=== PATIENT | male | born 1970 | race American Indian/Alaskan Native ===

== ENCOUNTER 2017-11-15 13:50 | Emergency (ER) | payer OTHER ==
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
[2017-11-15] MEDS ORDERED: NORVASC PO ONE (16:17)
[2017-11-15] MEDS ORDERED: TYLENOL PO ONE (16:28)
[2017-11-15 17:22] VITALS: BP 165/118
== END 2017-11-15 17:43 | disposition home or self-care (01) ==
LOC: ED 13:50
DX: M25.511 Pain in right shoulder (principal); M25.512 Pain in left shoulder; I10 Essential (primary) hypertension; F17.200 Nicotine dependence, unspecified, uncomplicated; V89.2XXA Person injured in unspecified motor-vehicle accident, traffic, initial encounter; Y93.89 Activity, other specified; Y92.89 Other specified places as the place of occurrence of the external cause; Y99.8 Other external cause status
CPT/HCPCS: 99282

== ENCOUNTER 2021-06-21 07:29 | Inpatient (IN) | payer OTHER, SELFPAY ==
[2021-06-21] MEDS ORDERED: cloNIDine 0.2 MG TAB PO ONE (08:10)
[2021-06-21 08:40] LABS: Hematocrit 43.1 % (35.5-45.6); Hemoglobin 15.2 gm/dl (11.8-15.2); Mean Corpuscular HGB Conc 35 % (32-34); Mean Corpuscular Volume 93 fl (84-94); Platelet Count 244 K/mm3 (140-440); Red Blood Count 4.64 M/mm3 (3.65-5.03); Red Cell Distribution Width 13.5 % (13.2-15.2)
[2021-06-21] MEDS ORDERED: METOCLOPRAMIDE 10 MG/2 ML INJ IV ONE (08:45)
[2021-06-21] MEDS ORDERED: diphenhydrAMINE 50 MG/ML VIAL IV ONE (08:45)
--- NOTE | 2021-06-21 08:46 | Emergency Department Report ---
<SNEHAL COX - Last Filed: 06/21/21 12:52> ED Headache HPI - General Chief Complaint: Headache Stated Complaint: BLOOD PRESSURE Time Seen by Provider: 06/21/21 08:44 Source: patient Exam Limitations: no limitations - History of Present Illness Initial Comments: 51 year old male with past medical history of hypertension and tobacco use presents to the ER today with complaints of headache. Patient states that he started with a gradual bitemporal headache yesterday. He States that has been constant since yesterday with associated dizzy and feeling off balance like he is about to pass out and nausea. Patient states that he assumed that the he adache was likely related to his high blood pressure because he does not typically get headaches but he did not check his blood pressure yesterday. He states that the last time he has taken anything for his blood pressure was about 3 years ago. He states that he had lost weight and so his primary care doctor took him off the blood pressure medications. Patient admits that he has not been compliant with follow-ups with his primary care doctor and has not been checking his blood pressures at home since he has been off of the blood pressure medication. He denies any associated vision changes, speech changes, focal weakness, numbness, tingling, syncope, chest pain, shortness of breath, abdominal pain or any additional symptoms. Other than hypertension he denies any other significant past medical history. Timing/Duration: 24 hours, constant Quality: moderate, severe Head Injury Location: temporal Allergies/Adverse Reactions: Allergies No Known Allergies Allergy (Verified 06/21/21 07:33) Home Medications: Ambulatory Orders hydrALAZINE [Apresoline TAB] 25 mg PO Q8HR #90 tablet 08/31/15 Acetaminophen [Acetaminophen TAB] 500 mg PO Q6HR PRN #30 tablet 11/15/17 Cyclobenzaprine [Flexeril] 10 mg PO TID PRN #15 tablet 11/15/17 amLODIPine 10 mg PO DAILY #30 tablet 11/15/17 ED Review of Systems Comment: All other systems reviewed and negative Constitutional: denies: chills, fever Eyes: denies: eye pain, eye discharge, vision change ENT: denies: ear pain, throat pain, dental pain, hearing loss, epistaxis, congestion Respiratory: denies: cough, shortness of breath, SOB with exertion, SOB at rest, wheezing Cardiovascular: denies: chest pain, palpitations, dyspnea on exertion, edema, syncope, paroxysmal nocturnal dyspnea Gastrointestinal: nausea. denies: abdominal pain, vomiting, diarrhea, constipation, hematemesis, melena, hematochezia Genitourinary: denies: urgency, dysuria, frequency, hematuria, discharge, testicular pain, testicular mass Musculoskeletal: denies: back pain, joint swelling, arthralgia, myalgia Skin: denies: rash, lesions, change in color, change in hair/nails, pruritus Neurological: headache, other (dizzy, off balance ). denies: weakness, numbness, paresthesias, confusion, abnormal gait Psychiatric: denies: anxiety, depression, auditory hallucinations, visual hallucinations, homicidal thoughts, suicidal thoughts Hematological/Lymphatic: denies: easy bleeding, easy bruising, swollen glands ED Past Medical Hx - Past Medical History Hx Hypertension: Yes Hx Congestive Heart Failure: No Hx Diabetes: No Hx Asthma: No Hx COPD: No Hx HIV: No - Surgical History Additional Surgical History: hand surgery, ankle surgery - Social History Smoking Status: Never Smoker Substance Use Type: None - Medications Home Medications: Home Medications Medication Instructions Recorded Confirmed Last Taken Type hydrALAZINE [Apresoline TAB] 25 mg PO Q8HR #90 tablet 08/31/15 Unknown Rx Acetaminophen [Acetaminophen TAB] 500 mg PO Q6HR PRN #30 tablet 11/15/17 Unknown Rx Cyclobenzaprine [Flexeril] 10 mg PO TID PRN #15 tablet 11/15/17 Unknown Rx amLODIPine 10 mg PO DAILY #30 tablet 11/15/17 Unknown Rx ED Physical Exam - General Limitations: No Limitations General appearance: alert, in distress (mod pain distress), other (pt holding his head and appears to be in pain from his Headache ) - Head Head exam: Present: atraumatic, normocephalic, normal inspection - Eye Eye exam: Present: normal appearance, PERRL, EOMI Pupils: Present: normal accommodation - ENT ENT exam: Present: normal exam, mucous membranes moist - Neck Neck exam: Present: normal inspection, full ROM. Absent: meningismus - Respiratory Respiratory exam: Present: normal lung sounds bilaterally. Absent: respiratory distress, wheezes, rales, rhonchi - Cardiovascular Cardiovascular Exam: Present: regular rate, normal rhythm, normal heart sounds - Neurological Exam Neurological exam: Present: alert, oriented X3, CN II-XII intact - Expanded Neurological Exam Expanded Neurological exam: Present: ataxia Patient oriented to: Present: person, place, time Speech: Present: fluid speech Cranial nerves: EOM's Intact: Normal, Gag Reflex: Normal, Facial Sensation: Normal Ataxia: Present: yes Sensory exam: Upper Extremity Light Touch: Normal, Upper Extremity Temperature: Normal, Lower Extremity Light Touch: Normal, Lower Extremity Temperature: Normal Motor strength exam: RUE: 5, LUE: 5, RLE: 5, LLE: 5 Best Eye Response (Erlin): (4) open spontaneously Best Motor Response (Narvon): (6) obeys commands Best Verbal Response (Erlin): (5) oriented Erlin Total: 15 ED Medical Decision Making - Lab Data Result diagrams: 06/21/21 08:22 06/21/21 08:22 - Radiology Data Radiology results: report reviewed Patient: NOEL LEDBETTER MR#: [id number] [birth year] : 1970 Acct:[id number] Age/Sex: 51 / M ADM Date: 06/21/21 Loc: ED Attending Dr: Ordering Physician: SNEHAL COX Date of Service: 06/21/21 Procedure(s): CT head/brain wo con Accession Number(s): [id number] cc: SNEHAL COX CT HEAD WITHOUT CONTRAST INDICATION / CLINICAL INFORMATION: severe headache. TECHNIQUE: All CT scans at this location are performed using CT dose reduction for ALARA by means of automated exposure control. COMPARISON: Head CT 08/28/2015 and MRI brain 08/29/2015 FINDINGS: HEMORRHAGE: No evidence of intracranial hemorrhage or extra-axial fluid collection. EXTRA-AXIAL SPACES: Cortical sulci, sylvian fissures and basilar cisterns have an unremarkable appearance. VENTRICULAR SYSTEM: The third and lateral ventricles are of normal size and configuration. CEREBRAL PARENCHYMA: Bilaterally symmetrical physiological calcification is seen in the basal ganglia regions. Periventricular and deep white matter lucencies noted compatible with microvascular ischemic change in excess of that expected for the patient's age of 51 years. Are there risk factors of hypertension, diabetes, cigarette smoking or renal disease These findings have progressed since prior study. MIDLINE SHIFT OR HERNIATION: There is no mass effect. CEREBELLUM / BRAINSTEM: Brainstem and cerebellum have an unremarkable appearance. MIDLINE STRUCTURES:No abnormalities of the pituitary gland or pineal region are identified. INTRACRANIAL VESSELS: Calcified atherosclerotic plaque is seen along the course of the cavernous segments of both internal carotid arteries. ORBITS: visualized portions of the orbits have an unremarkable appearance. SOFT TISSUES of HEAD: No significant abnormality. CALVARIUM: Evaluation of bone windows reveals no abnormalities. PARANASAL SINUSES / MASTOID AIR CELLS: Visualized portions of the paranasal sinuses are free from inflammatory mucosal disease. Mastoid air cells are normally pneumatized. ADDITIONAL FINDINGS: None. IMPRESSION: 1. No acute intracranial abnormality. 2. Interval development of white matter lucency compatible with microvascular ischemic change. Please refer to the above discussion. Signer Name: Malik Sanchez MD Signed: 06/21/2021 8:47 AM Workstation Name: [id number] Transcribed By: Patient: NOEL LEDBETTER MR#: [id number] [birth year] : 1970 Acct:[id number] Age/Sex: 51 / M ADM Date: 06/21/21 Loc: ED Attending Dr: Ordering Physician: SNEHAL COX Date of Service: 06/21/21 Procedure(s): XR chest 1V ap Accession Number(s): [id number] cc: SNEHAL COX Fluoro Time In Minutes: CHEST 1 VIEW 06/21/2021 11:12 AM INDICATION / CLINICAL INFORMATION: fever. COMPARISON: None available. FINDINGS: SUPPORT DEVICES: None. HEART / MEDIASTINUM: The cardiac silhouette is mildly enlarged without other significant abnormalities. LUNGS / PLEURA: No significant pulmonary abnormality. No significant pleural effusion. No pneumothorax. ADDITIONAL FINDINGS: No significant additional findings. IMPRESSION: Mild cardiomegaly without other acute findings. Signer Name: Rodolfo Saini MD Signed: 06/21/2021 11:21 AM Workstation Name: [id number] Transcribed By: [place] Dictated By: Rodolfo Saini MD Electronically Authenticated By: Rodolfo Saini MD Signed Date/Time: 06/21/21 1121 DD/ 1120 TD/TT: - Medical Decision Making 1119: Patient current vital signs on the youth nutritional monitor shows that he has a blood pressure of 175/120 despite meds, heart rate in 83 but his oxygen was noted to fluctuate between 92 to 95% on room air at rest. Patient temperature now is 102. Patient states that he still dizzy but his headache is improving. Questioned patient further and she now has this fever, and he did admit that he had a subjective fever last night and he states that he only now started coughing since he has been in the ER but otherwise denies any runny nose, nasal congestion, shortness of breath, wheezing or chest pain, or neck pain. He denies any known Covid COVID-19 contacts and he had has not gotten the vaccine. cxr and tylenol ordered, EKG pending So far labs including trop unremarkable. CT Head shows No acute intracranial abnormality. Interval development of white matter lucency compatible with microvascular ischemic change. Chest x-ray shows mild cardiomegaly but otherwise unremarkable. EKG reviewed and documented by Dr De Jesus but no STEMI or significant dysrhythmias 1209: Patient was evaluate together with Dr De Jesus and myself. Patient states that his headache is now 8 out of 10 and he still feels dizzy. Patient was ambulated by myself without a cane, he does still have a mild ataxic gait but otherwise his neurological exam is unremarkable. He was in no respiratory distress. See Dr Pickett not for details. Patient will be admitted to hospital for furthe evaluation and tx for uncontrolled HTN, unsteady gait and MARTINEZ and fever. ED Disposition Clinical Impression: Accelerated hypertension, Unsteady gait, Fever, Headache Disposition: ADMITTED INPATIENT Condition: Stable <DEEPIKA DE JESUS - Last Filed: 06/21/21 14:18> ED Headache HPI - General Source: old records ED Review of Systems ROS: Stated complaint: BLOOD PRESSURE Other details as noted in HPI ED Course Vital Signs 06/21/21 06/21/21 06/21/21 07:36 08:26 10:27 Temperature 99.6 F Pulse Rate 97 H 97 H Respiratory 22 Rate Blood Pressure 213/138 213/138 O2 Sat by Pulse 93 94 Oximetry 06/21/21 06/21/21 06/21/21 10:30 10:46 11:08 Temperature Pulse Rate Respiratory Rate Blood Pressure 200/115 200/115 175/120 O2 Sat by Pulse 93 90 87 Oximetry 06/21/21 06/21/21 06/21/21 11:16 11:30 11:41 Temperature 102.9 F H Pulse Rate Respiratory Rate Blood Pressure 175/120 184/124 O2 Sat by Pulse 95 96 Oximetry 06/21/21 06/21/21 06/21/21 11:46 12:00 13:18 Temperature Pulse Rate Respiratory Rate Blood Pressure 184/124 184/124 175/120 O2 Sat by Pulse 96 94 93 Oximetry 06/21/21 06/21/21 06/21/21 13:30 13:46 14:00 Temperature Pulse Rate Respiratory Rate Blood Pressure 175/120 175/120 180/108 O2 Sat by Pulse 87 90 87 Oximetry - Reevaluation(s) Reevaluation #1: 06/21/21 14:17 Improvement in diastolic pressure after labetalol 10 mg IV. Addition of labetalol ordered ED Medical Decision Making - Lab Data Result diagrams: 06/21/21 08:22 06/21/21 08:22 Lab Results 06/21/21 06/21/21 06/21/21 Range/Units 08:22 08:22 08:22 WBC 6.6 (4.5-11.0) K/mm3 RBC 4.64 (3.65-5.03) M/mm3 Hgb 15.2 (11.8-15.2) gm/dl Hct 43.1 (35.5-45.6) % MCV 93 (84-94) fl MCH 33 H (28-32) pg MCHC 35 H (32-34) % RDW 13.5 (13.2-15.2) % Plt Count 244 (140-440) K/mm3 [place] % (Auto) Clerk Of Scales Add Manual Diff Complete Total Counted 100 Seg Neuts % (Manual) 69.0 (40.0-70.0) % Lymphocytes % (Manual) 11.0 L (13.4-35.0) % Monocytes % (Manual) 18.0 H (0.0-7.3) % Basophils % (Manual) 2.0 H (0.0-1.8) % Nucleated RBC % Not Reportable Seg Neutrophils # Man 4.6 (1.8-7.7) K/mm3 Band Neutrophils # 0.0 K/mm3 Lymphocytes # (Manual) 0.7 L (1.2-5.4) K/mm3 Abs React Lymphs (Man) 0.0 K/mm3 Monocytes # (Manual) 1.2 H (0.0-0.8) K/mm3 Eosinophils # (Manual) 0.0 (0.0-0.4) K/mm3 Basophils # (Manual) 0.1 (0.0-0.1) K/mm3 Metamyelocytes # 0.0 K/mm3 Myelocytes # 0.0 K/mm3 Promyelocytes # 0.0 K/mm3 Blast Cells # 0.0 K/mm3 WBC Morphology Not Reportable Hypersegmented Neuts Not Reportable Hyposegmented Neuts Not Reportable Hypogranular Neuts Not Reportable Smudge Cells Not Reportable Toxic Granulation Not Reportable Toxic Vacuolation Not Reportable Dohle Bodies Not Reportable Pelger-Huet Anomaly Not Reportable Mary Rods Not Reportable Platelet Estimate Consistent w auto Clumped Platelets Not Reportable Plt Clumps, EDTA Not Reportable Large Platelets Few Giant Platelets Not Reportable Platelet Satelliting Not Reportable Plt Morphology Comment Not Reportable RBC Morphology Normal Dimorphic RBCs Not Reportable Polychromasia Not Reportable Hypochromasia Not Reportable Poikilocytosis Not Reportable Anisocytosis Not Reportable Microcytosis Not Reportable Macrocytosis Not Reportable Spherocytes Not Reportable Pappenheimer Bodies Not Reportable Sickle Cells Not Reportable Target Cells Not Reportable Tear Drop Cells Not Reportable Ovalocytes Not Reportable Helmet Cells Not Reportable Andres-Tovey Bodies Not Reportable Amo Rings Not Reportable Jillian Cells Not Reportable Bite Cells Not Reportable Crenated Cell Not Reportable Elliptocytes Not Reportable Acanthocytes (Spur) Not Reportable Rouleaux Not Reportable Hemoglobin C Crystals Not Reportable Schistocytes Not Reportable Malaria parasites Not Reportable ESR (0-20) mm/Hr Anup Bodies Not Reportable Hem Pathologist Commnt No Sodium 134 L (137-145) mmol/L Potassium 4.0 (3.6-5.0) mmol/L Chloride 97.5 L (98-107) mmol/L Carbon Dioxide 26 (22-30) mmol/L Anion Gap 15 mmol/L BUN 15 (9-20) mg/dL Creatinine 1.3 (0.8-1.3) mg/dL Estimated GFR > 60 ml/min BUN/Creatinine Ratio 12 % Glucose 87 (75-100) mg/dL Calcium 9.6 (8.4-10.2) mg/dL Total Bilirubin 0.30 (0.1-1.2) mg/dL AST 22 (5-40) units/L ALT 14 (7-56) units/L Alkaline Phosphatase 78 (35-129) units/L Troponin T < 0.010 (0.00-0.029) ng/mL Total Protein 7.7 (6.3-8.2) g/dL Albumin 4.6 (3.9-5) g/dL Albumin/Globulin Ratio 1.5 % // Range/Units 08:22 WBC (4.5-11.0) K/mm3 RBC (3.65-5.03) M/mm3 Hgb (11.8-15.2) gm/dl Hct (35.5-45.6) % MCV (84-94) fl MCH (28-32) pg MCHC (32-34) % RDW (13.2-15.2) % Plt Count (140-440) K/mm3 [place] % (Auto) Add Manual Diff Total Counted Seg Neuts % (Manual) (40.0-70.0) % Lymphocytes % (Manual) (13.4-35.0) % Monocytes % (Manual) (0.0-7.3) % Basophils % (Manual) (0.0-1.8) % Nucleated RBC % Seg Neutrophils # Man (1.8-7.7) K/mm3 Band Neutrophils # K/mm3 Lymphocytes # (Manual) (1.2-5.4) K/mm3 Abs React Lymphs (Man) K/mm3 Monocytes # (Manual) (0.0-0.8) K/mm3 Eosinophils # (Manual) (0.0-0.4) K/mm3 Basophils # (Manual) (0.0-0.1) K/mm3 Metamyelocytes # K/mm3 Myelocytes # K/mm3 Promyelocytes # K/mm3 Blast Cells # K/mm3 WBC Morphology Hypersegmented Neuts Hyposegmented Neuts Hypogranular Neuts Smudge Cells Toxic Granulation Toxic Vacuolation Dohle Bodies Pelger-Huet Anomaly Mary Rods Platelet Estimate Clumped Platelets Plt Clumps, EDTA Large Platelets Giant Platelets Platelet Satelliting Plt Morphology Comment RBC Morphology Dimorphic RBCs Polychromasia Hypochromasia Poikilocytosis Anisocytosis Microcytosis Macrocytosis Spherocytes Pappenheimer Bodies Sickle Cells Target Cells Tear Drop Cells Ovalocytes Helmet Cells Andres-Tovey Bodies Amo Rings Jillian Cells Bite Cells Crenated Cell Elliptocytes Acanthocytes (Spur) Rouleaux Hemoglobin C Crystals Schistocytes Malaria parasites ESR 6 (0-20) mm/Hr Anup Bodies Hem Pathologist Commnt Sodium (137-145) mmol/L Potassium (3.6-5.0) mmol/L Chloride (98-107) mmol/L Carbon Dioxide (22-30) mmol/L Anion Gap mmol/L BUN (9-20) mg/dL Creatinine (0.8-1.3) mg/dL Estimated GFR ml/min BUN/Creatinine Ratio % Glucose (75-100) mg/dL Calcium (8.4-10.2) mg/dL Total Bilirubin (0.1-1.2) mg/dL AST (5-40) units/L ALT (7-56) units/L Alkaline Phosphatase (35-129) units/L Troponin T (0.00-0.029) ng/mL Total Protein (6.3-8.2) g/dL Albumin (3.9-5) g/dL Albumin/Globulin Ratio % - EKG Data -: EKG Interpreted by Me EKG shows normal: sinus rhythm, ST-T waves (lvh, repol ) Rate: normal - Medical Decision Making I examined patient at the bedside with Snehal. Patient complains of persistent but improving bitemporal headache with midlevel treatment prior to my evaluation. His NIH stroke scale is 0 however, patient is noticeably unsteady while walking. Blood pressure remains elevated despite clonidine 0.2 mg. Patient developed a fever and complains of a mild cough but denies urinary symptoms. Chest x-ray without infiltrate. No nuchal rigidity on examination. Abdomen nontender. Previous medical record reviewed and patient had a presentation of hypertension, headache, ataxia, and blurred vision in 2015 and had a negative stroke work-up at that time. At this time concerned about uncontrolled hypertension in addition to headache and unsteady gait and concern for accelerated hypertension. Case discussed with Dr. Larsen who recommends telemetry medicine. IV labetalol ordered and admission orders placed. Symptoms could also be part of a viral syndrome/Covid. Covid test ordered. Critical care attestation.: If time is entered above; I have spent that time in minutes in the direct care of this critically ill patient, excluding procedure time. ED Disposition Is pt being admited?: Yes Time of Disposition: 12:18 (Dr. Larsen/hospitalist) - Assessment Assessment Interval: Baseline - Level of Consciousness 1a. Level of Consciousness: alert/keenly responsive - LOC Questions 1b. LOC Questions: answers both correctly - LOC Command 1c. LOC Commands: performs tasks correctly - Best Gaze 2. Best Gaze: normal - Visual 3. Visual: no visual loss - Facial Palsy 4. Facial Palsy: normal symmetrical movement - Motor Arm 5a. Motor Arm Left: no drift 5b. Motor Arm Right: no drift - Motor Leg 6a. Motor Leg Left: no drift 6b. Motor Leg Right: no drift - Limb Ataxia 7. Limb Ataxia: absent - Sensory 8. Sensory: normal - Best Language 9. Best Language: no aphasia - Dysarthria 10. Dysarthria: normal - Extinction and Inattention 11. Extinction/Inattention: no abnormality - Scoring Total Score: 0 Stroke Severity: No Stroke Symptoms
--- NOTE | 2021-06-21 08:51 | Cat Scan Report ---
CT HEAD WITHOUT CONTRAST INDICATION / CLINICAL INFORMATION: severe headache. TECHNIQUE: All CT scans at this location are performed using CT dose reduction for ALARA by means of automated e xposure control. COMPARISON: Head CT 08/28/2015 and MRI brain 08/29/2015 FINDINGS: HEMORRHAGE: No evidence of intracranial hemorrhage or extra-axial fluid collection. EXTRA-AXIAL SPACES: Cortical sulci, sylvian fissures and basilar cisterns have an unremarkable appear ance. VENTRICULAR SYSTEM: The third and lateral ventricles are of normal size and configuration. CEREBRAL PARENCHYMA: Bilaterally symmetrical physiological calcification is seen in the basal ganglia regions. Periventricular and deep white matter lucencies noted compatible with microvascular ischemi c change in excess of that expected for the patient's age of 51 years. Are there risk factors of hype rtension, diabetes, cigarette smoking or renal disease These findings have progressed since prior eliu dy. MIDLINE SHIFT OR HERNIATION: There is no mass effect. CEREBELLUM / BRAINSTEM: Brainstem and cerebellum have an unremarkable appearance. MIDLINE STRUCTURES:No abnormalities of the pituitary gland or pineal region are identified. INTRACRANIAL VESSELS: Calcified atherosclerotic plaque is seen along the course of the cavernous segm ents of both internal carotid arteries. ORBITS: visualized portions of the orbits have an unremarkable appearance. SOFT TISSUES of HEAD: No significant abnormality. CALVARIUM: Evaluation of bone windows reveals no abnormalities. PARANASAL SINUSES / MASTOID AIR CELLS: Visualized portions of the paranasal sinuses are free from inf lammatory mucosal disease. Mastoid air cells are normally pneumatized. ADDITIONAL FINDINGS: None. IMPRESSION: 1. No acute intracranial abnormality. 2. Interval development of white matter lucency compatible with microvascular ischemic change. Please refer to the above discussion. Signer Name: Malik Sanchez MD Signed: 06/21/2021 8:47 AM Workstation Name: [id number]
[2021-06-21 09:00] LABS: Alanine Aminotransferase 14 units/L (7-56); Albumin 4.6 g/dL (3.9-5); BUN/Creatinine Ratio 12; Blood Urea Nitrogen 15 mg/dL (9-20); Calcium 9.6 mg/dL (8.4-10.2); Hemolysis Index 7
[2021-06-21 10:04] LABS: Total Cells Counted 100
[2021-06-21 10:06] LABS: Large Platelets Few; Platelet Estimate Consistent w Auto; RBC Morphology Normal
[2021-06-21] MEDS ORDERED: ACETAMINOPHEN 325 MG TAB PO ONE (11:21)
--- NOTE | 2021-06-21 11:25 | XRay Report ---
CHEST 1 VIEW 06/21/2021 11:12 AM INDICATION / CLINICAL INFORMATION: fever. COMPARISON: None available. FINDINGS: SUPPORT DEVICES: None. HEART / MEDIASTINUM: The cardiac silhouette is mildly enlarged without other significant abnormalitie s. LUNGS / PLEURA: No significant pulmonary abnormality. No significant pleural effusion. No pneumothora x. ADDITIONAL FINDINGS: No significant additional findings. IMPRESSION: Mild cardiomegaly without other acute findings. Signer Name: Rodolfo Saini MD Signed: 06/21/2021 11:21 AM Workstation Name: [id number]
[2021-06-21 15:39] LABS: Bilirubin,Urine NEG (Negative); Blood,Urine SM (Negative); Color,Urine Yellow (Yellow); Mucus,Urine FEW /HPF
[2021-06-21] MEDS ORDERED: ONDANSETRON 4 MG/2 ML INJ IV PRN (21:30)
[2021-06-21] MEDS ORDERED: METOCLOPRAMIDE 10 MG/2 ML INJ IV PRN (21:30)
[2021-06-21] MEDS ORDERED: HYDROmorphone 1 MG/1 ML INJ IV PRN (21:30)
[2021-06-21] MEDS ORDERED: oxyCODONE /ACETAMINOPHEN 5-325MG TAB PO PRN (21:30)
[2021-06-21] MEDS ORDERED: ACETAMINOPHEN 325 MG TAB PO PRN (21:30)
[2021-06-21] MEDS ORDERED: hydrALAZINE 20 MG/1 ML INJ IV PRN (21:33)
[2021-06-21] MEDS: amLODIPine 10 MG TAB PO SCH (23:23)
[2021-06-21] MEDS: HEPARIN 5,000 UNIT/1 ML VIAL SUB-Q SCH (23:24)
[2021-06-21] MEDS: VALSARTAN 160MG TAB PO SCH (23:24)
[2021-06-21] MEDS: carvediloL 12.5 MG TAB PO SCH (23:24)
[2021-06-21] MEDS: FAMOTIDINE 20 MG TAB PO SCH (23:24)
[2021-06-22 06:31] LABS: Hematocrit 41.4 % (35.5-45.6); Hemoglobin 14.7 gm/dl (11.8-15.2); Mean Corpuscular HGB Conc 36 % (32-34); Mean Corpuscular Volume 91 fl (84-94); Platelet Count 186 K/mm3 (140-440); Red Blood Count 4.56 M/mm3 (3.65-5.03); Red Cell Distribution Width 13.7 % (13.2-15.2)
[2021-06-22 06:39] LABS: Alanine Aminotransferase 16 units/L (7-56); Albumin 4.2 g/dL (3.9-5); BUN/Creatinine Ratio 14; Blood Urea Nitrogen 18 mg/dL (9-20); Calcium 8.9 mg/dL (8.4-10.2); Hemolysis Index 33
--- NOTE | 2021-06-22 07:26 | History and Physical Report ---
History of Present Illness Date of examination: 06/21/21 Date of admission: 06/21/21 12:18 Chief complaint: Headache for 2 days History of present illness: 51-year-old -[place] Citizen male with history of hypertension and smoking, noncompliant with medications comes in for headache since yesterday. Gradual and dull and bilateral. Constant since this today and also associated with dizziness and feeling off balance. Patient feels as he is about to pass out. In the emergency room his blood pressure was 220/10/27/2019. Patient was taking blood pressure medication to 3 years ago and then stop. He states that he lost weight and the primary care physician to do more of his blood pressure medications. Patient has not been following with his primary care physician. No chest pain. No shortness of breath. No fever or chills. - Past Medical History --Hypertension: Yes - Surgical History Additional Surgical History: hand surgery, ankle surgery - Social History Smoking Status: Never Smoker Substance Use Type: None -Family history --Htn - Medications Home Medications: Home Medications Medication Instructions Recorded Confirmed Last Taken Type hydrALAZINE [Apresoline TAB] 25 mg PO Q8HR #90 tablet 08/31/15 Unknown Rx Acetaminophen [Acetaminophen TAB] 500 mg PO Q6HR PRN #30 tablet 11/15/17 Unknown Rx Cyclobenzaprine [Flexeril] 10 mg PO TID PRN #15 tablet 11/15/17 Unknown Rx amLODIPine 10 mg PO DAILY #30 tablet 11/15/17 Unknown Rx --Review of Systems Comment: All other systems reviewed and negative Constitutional: denies: chills, fever Eyes: denies: eye pain, eye discharge, vision change ENT: denies: ear pain, throat pain, dental pain, hearing loss, epistaxis, congestion Respiratory: denies: cough, shortness of breath, SOB with exertion, SOB at rest, wheezing Cardiovascular: denies: chest pain, palpitations, dyspnea on exertion, edema, syncope, paroxysmal nocturnal dyspnea Gastrointestinal: nausea. denies: abdominal pain, vomiting, diarrhea, constipation, hematemesis, melena, hematochezia Genitourinary: denies: urgency, dysuria, frequency, hematuria, discharge, testicular pain, testicular mass Musculoskeletal: denies: back pain, joint swelling, arthralgia, myalgia Skin: denies: rash, lesions, change in color, change in hair/nails, pruritus Neurological: headache, other (dizzy, off balance ). denies: weakness, numbness, paresthesias, confusion, abnormal gait Psychiatric: denies: anxiety, depression, auditory hallucinations, visual hallucinations, homicidal thoughts, suicidal thoughts Hematological/Lymphatic: denies: easy bleeding, easy bruising, swollen glands Medications and Allergies Allergies Allergy/AdvReac Type Severity Reaction Status Date / Time No Known Allergies Allergy Verified 06/21/21 07:33 Home Medications Medication Instructions Recorded Confirmed Last Taken Type hydrALAZINE [Apresoline TAB] 25 mg PO Q8HR #90 tablet 08/31/15 Unknown Rx Acetaminophen [Acetaminophen TAB] 500 mg PO Q6HR PRN #30 tablet 11/15/17 Unknown Rx Cyclobenzaprine [Flexeril] 10 mg PO TID PRN #15 tablet 11/15/17 Unknown Rx amLODIPine 10 mg PO DAILY #30 tablet 11/15/17 Unknown Rx Active Meds: Active Medications Acetaminophen (Acetaminophen 325 Mg Tab) 650 mg PO Q4H PRN PRN Reason: Pain MILD(1-3)/Fever >100.5/MARTINEZ Last Admin: 06/21/21 22:00 Dose: 650 mg Documented by: Amlodipine Besylate (Amlodipine 10 Mg Tab) 10 mg PO QDAY [facility] Last Admin: 06/21/21 23:23 Dose: 10 mg Documented by: Carvedilol (Carvedilol 12.5 Mg Tab) 12.5 mg PO BID [facility] Last Admin: 06/21/21 23:24 Dose: 12.5 mg Documented by: Famotidine (Famotidine 20 Mg Tab) 20 mg PO BID [facility] Last Admin: 06/21/21 23:24 Dose: 20 mg Documented by: Heparin Sodium (Porcine) (Heparin 5,000 Unit/1 Ml Vial) 5,000 unit SUB-Q Q12HR [facility] Last Admin: 06/21/21 23:24 Dose: 5,000 unit Documented by: Hydralazine HCl (Hydralazine 20 Mg/1 Ml Inj) 10 mg IV Q3H PRN PRN Reason: Blood Pressure Hydromorphone HCl (Hydromorphone 1 Mg/1 Ml Inj) 0.5 mg IV Q3H PRN PRN Reason: Pain , Severe (7-10) Metoclopramide HCl (Metoclopramide 10 Mg/2 Ml Inj) 10 mg IV Q6H PRN PRN Reason: Nausea And Vomiting Ondansetron HCl (Ondansetron 4 Mg/2 Ml Inj) 4 mg IV Q8H PRN PRN Reason: Nausea And Vomiting Oxycodone/Acetaminophen (Oxycodone /Acetaminophen 5-325mg Tab) 1 tab PO Q6H PRN PRN Reason: Pain, Moderate (4-6) Sodium Chloride (Sodium Chloride 0.9% 10 Ml Flush Syringe) 10 ml IV BID [facility] Last Admin: 06/21/21 23:24 Dose: 10 ml Documented by: Sodium Chloride (Sodium Chloride 0.9% 10 Ml Flush Syringe) 10 ml IV PRN PRN PRN Reason: LINE FLUSH Valsartan (Valsartan 160mg Tab) 160 mg PO Q12H [facility] Last Admin: 06/21/21 23:24 Dose: 160 mg Documented by: Exam - Constitutional Vitals: Temp Pulse Resp BP Pulse Ox 102.9 F H 86 22 182/120 92 06/21/21 22:00 06/21/21 21:58 06/21/21 07:36 06/22/21 06:16 06/22/21 06:16 General appearance: Present: no acute distress, well-nourished - EENT Eyes: Present: PERRL ENT: hearing intact, clear oral mucosa - Neck Neck: Present: supple, normal ROM - Respiratory Respiratory effort: normal Respiratory: bilateral: CTA - Cardiovascular Heart rate: 78 Rhythm: regular Heart Sounds: Present: S1 & S2. Absent: rub, click - Extremities Extremities: no ischemia, pulses intact, pulses symmetrical, No edema Peripheral Pulses: within normal limits - Abdominal General gastrointestinal: Present: soft, non-tender, non-distended, normal bowel sounds Male genitourinary: Present: normal - Integumentary Integumentary: Present: clear, warm, dry - Musculoskeletal Musculoskeletal: gait normal, strength equal bilaterally - Psychiatric Psychiatric: appropriate mood/affect, intact judgment & insight - Neurologic Neurologic: CNII-XII intact, moves all extremities HEART Score - HEART Score History: Moderately suspicious Age: 45-65 Risk factors: 1-2 risk factors Troponin: Troponin T < 0.010 ng/mL (0.00-0.029) 06/21/21 08:22 Troponin: < normal limit - Critical Actions Critical Actions: 0-3 pts:0.9-1.7%risk of adverse cardiac event.Candidate for discharge Results - Labs CBC & Chem 7: 06/22/21 05:49 06/22/21 05:49 Labs: Laboratory Last Values WBC 5.1 K/mm3 (4.5-11.0) 06/22/21 05:49 RBC 4.56 M/mm3 (3.65-5.03) 06/22/21 05:49 Hgb 14.7 gm/dl (11.8-15.2) 06/22/21 05:49 Hct 41.4 % (35.5-45.6) 06/22/21 05:49 MCV 91 fl (84-94) 06/22/21 05:49 MCH 32 pg (28-32) 06/22/21 05:49 MCHC 36 % (32-34) H 06/22/21 05:49 RDW 13.7 % (13.2-15.2) 06/22/21 05:49 Plt Count 186 K/mm3 (140-440) 06/22/21 05:49 [place] % (Auto) Proof Load Mechanic 06/22/21 05:49 Add Manual Diff Complete 06/21/21 08:22 Total Counted 100 06/21/21 08:22 Seg Neuts % (Manual) 69.0 % (40.0-70.0) 06/21/21 08:22 Lymphocytes % (Manual) 11.0 % (13.4-35.0) L 06/21/21 08:22 Monocytes % (Manual) 18.0 % (0.0-7.3) H 06/21/21 08:22 Basophils % (Manual) 2.0 % (0.0-1.8) H 06/21/21 08:22 Nucleated RBC % Not Reportable 06/21/21 08:22 Seg Neutrophils # Man 4.6 K/mm3 (1.8-7.7) 06/21/21 08:22 Band Neutrophils # 0.0 K/mm3 06/21/21 08:22 Lymphocytes # (Manual) 0.7 K/mm3 (1.2-5.4) L 06/21/21 08:22 Abs React Lymphs (Man) 0.0 K/mm3 06/21/21 08:22 Monocytes # (Manual) 1.2 K/mm3 (0.0-0.8) H 06/21/21 08:22 Eosinophils # (Manual) 0.0 K/mm3 (0.0-0.4) 06/21/21 08:22 Basophils # (Manual) 0.1 K/mm3 (0.0-0.1) 06/21/21 08:22 Metamyelocytes # 0.0 K/mm3 06/21/21 08:22 Myelocytes # 0.0 K/mm3 06/21/21 08:22 Promyelocytes # 0.0 K/mm3 06/21/21 08:22 Blast Cells # 0.0 K/mm3 06/21/21 08:22 WBC Morphology Not Reportable 06/21/21 08:22 Hypersegmented Neuts Not Reportable 06/21/21 08:22 Hyposegmented Neuts Not Reportable 06/21/21 08:22 Hypogranular Neuts Not Reportable 06/21/21 08:22 Smudge Cells Not Reportable 06/21/21 08:22 Toxic Granulation Not Reportable 06/21/21 08:22 Toxic Vacuolation Not Reportable 06/21/21 08:22 Dohle Bodies Not Reportable 06/21/21 08:22 Pelger-Huet Anomaly Not Reportable 06/21/21 08:22 Mary Rods Not Reportable 06/21/21 08:22 Platelet Estimate Consistent w auto 06/21/21 08:22 Clumped Platelets Not Reportable 06/21/21 08:22 Plt Clumps, EDTA Not Reportable 06/21/21 08:22 Large Platelets Few 06/21/21 08:22 Giant Platelets Not Reportable 06/21/21 08:22 Platelet Satelliting Not Reportable 06/21/21 08:22 Plt Morphology Comment Not Reportable 06/21/21 08:22 RBC Morphology Normal 06/21/21 08:22 Dimorphic RBCs Not Reportable 06/21/21 08:22 Polychromasia Not Reportable 06/21/21 08:22 Hypochromasia Not Reportable 06/21/21 08:22 Poikilocytosis Not Reportable 06/21/21 08:22 Anisocytosis Not Reportable 06/21/21 08:22 Microcytosis Not Reportable 06/21/21 08:22 Macrocytosis Not Reportable 06/21/21 08:22 Spherocytes Not Reportable 06/21/21 08:22 Pappenheimer Bodies Not Reportable 06/21/21 08:22 Sickle Cells Not Reportable 06/21/21 08:22 Target Cells Not Reportable 06/21/21 08:22 Tear Drop Cells Not Reportable 06/21/21 08:22 Ovalocytes Not Reportable 06/21/21 08:22 Helmet Cells Not Reportable 06/21/21 08:22 Andres-[place] Bodies Not Reportable 06/21/21 08:22 [place] Rings Not Reportable 06/21/21 08:22 [place] Cells Not Reportable 06/21/21 08:22 Bite Cells Not Reportable 06/21/21 08:22 Crenated Cell Not Reportable 06/21/21 08:22 Elliptocytes Not Reportable 06/21/21 08:22 Acanthocytes (Spur) Not Reportable 06/21/21 08:22 Rouleaux Not Reportable 06/21/21 08:22 Hemoglobin C Crystals Not Reportable 06/21/21 08:22 Schistocytes Not Reportable 06/21/21 08:22 Malaria parasites Not Reportable 06/21/21 08:22 ESR 6 mm/Hr (0-20) 06/21/21 08:22 Anup Bodies Not Reportable 06/21/21 08:22 Hem Pathologist Commnt No 06/21/21 08:22 Sodium 133 mmol/L (137-145) L 06/22/21 05:49 Potassium 3.9 mmol/L (3.6-5.0) 06/22/21 05:49 Chloride 96.6 mmol/L (98-107) L 06/22/21 05:49 Carbon Dioxide 23 mmol/L (22-30) 06/22/21 05:49 Anion Gap 17 mmol/L 06/22/21 05:49 BUN 18 mg/dL (9-20) 06/22/21 05:49 Creatinine 1.3 mg/dL (0.8-1.3) 06/22/21 05:49 Estimated GFR > 60 ml/min 06/22/21 05:49 BUN/Creatinine Ratio 14 % 06/22/21 05:49 Glucose 88 mg/dL (75-100) 06/22/21 05:49 Hemoglobin A1c 5.8 % (4-6) 06/22/21 05:49 Calcium 8.9 mg/dL (8.4-10.2) 06/22/21 05:49 Total Bilirubin 0.30 mg/dL (0.1-1.2) 06/22/21 05:49 AST 32 units/L (5-40) 06/22/21 05:49 ALT 16 units/L (7-56) 06/22/21 05:49 Alkaline Phosphatase 71 units/L (35-129) 06/22/21 05:49 Troponin T < 0.010 ng/mL (0.00-0.029) 06/21/21 08:22 NT-Pro-B Natriuret Pep 969.3 pg/mL (0-900) H 06/21/21 08:22 Total Protein 7.3 g/dL (6.3-8.2) 06/22/21 05:49 Albumin 4.2 g/dL (3.9-5) 06/22/21 05:49 Albumin/Globulin Ratio 1.4 % 06/22/21 05:49 Urine Color Yellow (Yellow) 06/21/21 14:40 Urine Turbidity Clear (Clear) 06/21/21 14:40 Urine pH 6.0 (5.0-7.0) 06/21/21 14:40 Ur Specific [place] 1.020 (1.003-1.030) 06/21/21 14:40 Urine Protein 30 mg/dl mg/dL (Negative) 06/21/21 14:40 Urine Glucose (UA) Neg mg/dL (Negative) 06/21/21 14:40 Urine Ketones Neg mg/dL (Negative) 06/21/21 14:40 Urine Blood Sm (Negative) 06/21/21 14:40 Urine Nitrite Neg (Negative) 06/21/21 14:40 Urine Bilirubin Neg (Negative) 06/21/21 14:40 Urine Urobilinogen 2.0 mg/dL (<2.0) 06/21/21 14:40 Ur Leukocyte Esterase Neg (Negative) 06/21/21 14:40 Urine WBC (Auto) 1.0 /HPF (0.0-6.0) 06/21/21 14:40 Urine RBC (Auto) 3.0 /HPF (0.0-6.0) 06/21/21 14:40 U Epithel Cells (Auto) < 1.0 /HPF (0-13.0) 06/21/21 14:40 Urine Mucus Few /HPF 06/21/21 14:40 Short CBC 06/21/21 06/22/21 Range/Units 08:22 05:49 WBC 6.6 5.1 (4.5-11.0) K/mm3 Hgb 15.2 14.7 (11.8-15.2) gm/dl Hct 43.1 41.4 (35.5-45.6) % Plt Count 244 186 (140-440) K/mm3 BMP 06/21/21 06/22/21 08:22 05:49 Sodium 134 L 133 L Potassium 4.0 3.9 Chloride 97.5 L 96.6 L Carbon Dioxide 26 23 BUN 15 18 Creatinine 1.3 1.3 Glucose 87 88 Calcium 9.6 8.9 Cardiac Enzymes 06/21/21 Range/Units 08:22 Troponin T < 0.010 (0.00-0.029) ng/mL Liver Function 06/21/21 06/22/21 Range/Units 08:22 05:49 Total Bilirubin 0.30 0.30 (0.1-1.2) mg/dL AST 22 32 (5-40) units/L ALT 14 16 (7-56) units/L Alkaline Phosphatase 78 71 (35-129) units/L Albumin 4.6 4.2 (3.9-5) g/dL Urine 06/21/21 Range/Units 14:40 Urine Color Yellow (Yellow) Urine pH 6.0 (5.0-7.0) Ur Specific [place] 1.020 (1.003-1.030) Urine Protein 30 mg/dl (Negative) mg/dL Urine Glucose (UA) Neg (Negative) mg/dL - Imaging and Cardiology EKG: report reviewed (Normal sinus rhythm LVH by voltage criteria) Imaging and Cardiology: Head CT No acute intracranial abnormality No interval development of white matter lucency compatible with microvascular ischemic change Chest x-ray No acute findings Assessment and Plan Advance Directives: Yes (Full code) VTE prophylaxis?: Chemical Plan of care discussed with patient/family: Yes - Patient Problems (1) Hypertensive emergency Current Visit: Yes Status: Acute Plan to address problem: Patient initiated on her IV hydralazine 10 mg every 3 as needed Valsartan 1 6212 Coreg 12.5 every 12 Amlodipine 10 mg daily If necessary we will start on IV nicardipine (2) Ataxia Current Visit: No Status: Acute Plan to address problem: Secondary to high blood pressure and severe headache No neurological work-up Patient able to walk normally during my exam (3) Hyponatremia Current Visit: Yes Status: Acute Plan to address problem: Mild (4) DVT prophylaxis Current Visit: No Status: Acute Plan to address problem: On anticoagulation and GI prophylaxis
[2021-06-22] MEDS ORDERED: hydrALAZINE 20 MG/1 ML INJ IV ONE (07:31)
--- NOTE | 2021-06-22 10:26 | Electrocardiograph Report ---
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
[2021-06-22] MEDS: HEPARIN 5,000 UNIT/1 ML VIAL SUB-Q SCH (10:37)
[2021-06-22] MEDS: VALSARTAN 160MG TAB PO SCH (10:37)
[2021-06-22] MEDS: FAMOTIDINE 20 MG TAB PO SCH (10:38)
[2021-06-22] MEDS: amLODIPine 10 MG TAB PO SCH (10:38)
--- NOTE | 2021-06-22 11:20 | Progress Note ---
Assessment and Plan Assessment and plan: - Patient Problems (1) Hypertensive emergency Current Visit: Yes Status: Acute Plan to address problem: Patient initiated on IV hydralazine 10 mg every 3 as needed Valsartan Coreg 12.5 every 12 Amlodipine 10 mg daily Add Hydralazine po (2) Ataxia Current Visit: No Status: Acute Plan to address problem: Secondary to high blood pressure and severe headache CT head no stroke, no acute changes (3) Hyponatremia Current Visit: Yes Status: Acute Plan to address problem: Mild (4) DVT prophylaxis Current Visit: No Status: Acute Plan to address problem: On anticoagulation and GI prophylaxis 06/22/21 Patient with hypertensive emergency. BP still elevated. Add Hydralazine orrally. Also to r/o Covid. Patient needs inpatient status to control BP History Interval history: Headache Elevated blood pressure Hospitalist Physical - Physical exam Narrative exam: Gen:Not in acute distress, lying in bed, HEENT:Normocephalic, atraumatic Neck:supple, no JVD Lungs: Clear to auscultation bilaterally, no wheeze Heart:S1 and S2 reg, no murmurs, rubs or gallop Abd:Soft, non tender, non distended, normal bowel sounds Ext:No edema. no clubbing, no cyanosis Neuro:Awake, alert, oriented X 3, moves all ext, No focal neurological signs - Constitutional Vitals: Temp Pulse Resp BP Pulse Ox 102.9 F H 75 22 189/117 92 06/21/21 22:00 06/22/21 10:37 06/21/21 07:36 06/22/21 10:37 06/22/21 06:16 General appearance: Present: no acute distress HEART Score - HEART Score Age: 45-65 Risk factors: 1-2 risk factors Troponin: Troponin T < 0.010 ng/mL (0.00-0.029) 06/21/21 08:22 Troponin: < normal limit - Critical Actions Critical Actions: 0-3 pts:0.9-1.7%risk of adverse cardiac event.Candidate for discharge Results - Labs CBC & Chem 7: 06/22/21 05:49 06/22/21 05:49 Labs: Laboratory Last Values WBC 5.1 K/mm3 (4.5-11.0) 06/22/21 05:49 RBC 4.56 M/mm3 (3.65-5.03) 06/22/21 05:49 Hgb 14.7 gm/dl (11.8-15.2) 06/22/21 05:49 Hct 41.4 % (35.5-45.6) 06/22/21 05:49 MCV 91 fl (84-94) 06/22/21 05:49 MCH 32 pg (28-32) 06/22/21 05:49 MCHC 36 % (32-34) H 06/22/21 05:49 RDW 13.7 % (13.2-15.2) 06/22/21 05:49 Plt Count 186 K/mm3 (140-440) 06/22/21 05:49 [place] % (Auto) Wet Silk Hanger 06/22/21 05:49 Add Manual Diff Complete 06/21/21 08:22 Total Counted 100 06/21/21 08:22 Seg Neuts % (Manual) 69.0 % (40.0-70.0) 06/21/21 08:22 Lymphocytes % (Manual) 11.0 % (13.4-35.0) L 06/21/21 08:22 Monocytes % (Manual) 18.0 % (0.0-7.3) H 06/21/21 08:22 Basophils % (Manual) 2.0 % (0.0-1.8) H 06/21/21 08:22 Nucleated RBC % Not Reportable 06/21/21 08:22 Seg Neutrophils # Man 4.6 K/mm3 (1.8-7.7) 06/21/21 08:22 Band Neutrophils # 0.0 K/mm3 06/21/21 08:22 Lymphocytes # (Manual) 0.7 K/mm3 (1.2-5.4) L 06/21/21 08:22 Abs React Lymphs (Man) 0.0 K/mm3 06/21/21 08:22 Monocytes # (Manual) 1.2 K/mm3 (0.0-0.8) H 06/21/21 08:22 Eosinophils # (Manual) 0.0 K/mm3 (0.0-0.4) 06/21/21 08:22 Basophils # (Manual) 0.1 K/mm3 (0.0-0.1) 06/21/21 08:22 Metamyelocytes # 0.0 K/mm3 06/21/21 08:22 Myelocytes # 0.0 K/mm3 06/21/21 08:22 Promyelocytes # 0.0 K/mm3 06/21/21 08:22 Blast Cells # 0.0 K/mm3 06/21/21 08:22 WBC Morphology Not Reportable 06/21/21 08:22 Hypersegmented Neuts Not Reportable 06/21/21 08:22 Hyposegmented Neuts Not Reportable 06/21/21 08:22 Hypogranular Neuts Not Reportable 06/21/21 08:22 Smudge Cells Not Reportable 06/21/21 08:22 Toxic Granulation Not Reportable 06/21/21 08:22 Toxic Vacuolation Not Reportable 06/21/21 08:22 Dohle Bodies Not Reportable 06/21/21 08:22 Pelger-Huet Anomaly Not Reportable 06/21/21 08:22 Mary Rods Not Reportable 06/21/21 08:22 Platelet Estimate Consistent w auto 06/21/21 08:22 Clumped Platelets Not Reportable 06/21/21 08:22 Plt Clumps, EDTA Not Reportable 06/21/21 08:22 Large Platelets Few 06/21/21 08:22 Giant Platelets Not Reportable 06/21/21 08:22 Platelet Satelliting Not Reportable 06/21/21 08:22 Plt Morphology Comment Not Reportable 06/21/21 08:22 RBC Morphology Normal 06/21/21 08:22 Dimorphic RBCs Not Reportable 06/21/21 08:22 Polychromasia Not Reportable 06/21/21 08:22 Hypochromasia Not Reportable 06/21/21 08:22 Poikilocytosis Not Reportable 06/21/21 08:22 Anisocytosis Not Reportable 06/21/21 08:22 Microcytosis Not Reportable 06/21/21 08:22 Macrocytosis Not Reportable 06/21/21 08:22 Spherocytes Not Reportable 06/21/21 08:22 Pappenheimer Bodies Not Reportable 06/21/21 08:22 Sickle Cells Not Reportable 06/21/21 08:22 Target Cells Not Reportable 06/21/21 08:22 Tear Drop Cells Not Reportable 06/21/21 08:22 Ovalocytes Not Reportable 06/21/21 08:22 Helmet Cells Not Reportable 06/21/21 08:22 Andres-[place] Bodies Not Reportable 06/21/21 08:22 [place] Rings Not Reportable 06/21/21 08:22 [place] Cells Not Reportable 06/21/21 08:22 Bite Cells Not Reportable 06/21/21 08:22 Crenated Cell Not Reportable 06/21/21 08:22 Elliptocytes Not Reportable 06/21/21 08:22 Acanthocytes (Spur) Not Reportable 06/21/21 08:22 Rouleaux Not Reportable 06/21/21 08:22 Hemoglobin C Crystals Not Reportable 06/21/21 08:22 Schistocytes Not Reportable 06/21/21 08:22 Malaria parasites Not Reportable 06/21/21 08:22 ESR 6 mm/Hr (0-20) 06/21/21 08:22 Anup Bodies Not Reportable 06/21/21 08:22 Hem Pathologist Commnt No 06/21/21 08:22 Sodium 133 mmol/L (137-145) L 06/22/21 05:49 Potassium 3.9 mmol/L (3.6-5.0) 06/22/21 05:49 Chloride 96.6 mmol/L (98-107) L 06/22/21 05:49 Carbon Dioxide 23 mmol/L (22-30) 06/22/21 05:49 Anion Gap 17 mmol/L 06/22/21 05:49 BUN 18 mg/dL (9-20) 06/22/21 05:49 Creatinine 1.3 mg/dL (0.8-1.3) 06/22/21 05:49 Estimated GFR > 60 ml/min 06/22/21 05:49 BUN/Creatinine Ratio 14 % 06/22/21 05:49 Glucose 88 mg/dL (75-100) 06/22/21 05:49 Hemoglobin A1c 5.8 % (4-6) 06/22/21 05:49 Calcium 8.9 mg/dL (8.4-10.2) 06/22/21 05:49 Total Bilirubin 0.30 mg/dL (0.1-1.2) 06/22/21 05:49 AST 32 units/L (5-40) 06/22/21 05:49 ALT 16 units/L (7-56) 06/22/21 05:49 Alkaline Phosphatase 71 units/L (35-129) 06/22/21 05:49 Troponin T < 0.010 ng/mL (0.00-0.029) 06/21/21 08:22 NT-Pro-B Natriuret Pep 969.3 pg/mL (0-900) H 06/21/21 08:22 Total Protein 7.3 g/dL (6.3-8.2) 06/22/21 05:49 Albumin 4.2 g/dL (3.9-5) 06/22/21 05:49 Albumin/Globulin Ratio 1.4 % 06/22/21 05:49 Urine Color Yellow (Yellow) 06/21/21 14:40 Urine Turbidity Clear (Clear) 06/21/21 14:40 Urine pH 6.0 (5.0-7.0) 06/21/21 14:40 Ur Specific [place] 1.020 (1.003-1.030) 06/21/21 14:40 Urine Protein 30 mg/dl mg/dL (Negative) 06/21/21 14:40 Urine Glucose (UA) Neg mg/dL (Negative) 06/21/21 14:40 Urine Ketones Neg mg/dL (Negative) 06/21/21 14:40 Urine Blood Sm (Negative) 06/21/21 14:40 Urine Nitrite Neg (Negative) 06/21/21 14:40 Urine Bilirubin Neg (Negative) 06/21/21 14:40 Urine Urobilinogen 2.0 mg/dL (<2.0) 06/21/21 14:40 Ur Leukocyte Esterase Neg (Negative) 06/21/21 14:40 Urine WBC (Auto) 1.0 /HPF (0.0-6.0) 06/21/21 14:40 Urine RBC (Auto) 3.0 /HPF (0.0-6.0) 06/21/21 14:40 U Epithel Cells (Auto) < 1.0 /HPF (0-13.0) 06/21/21 14:40 Urine Mucus Few /HPF 06/21/21 14:40 Active Medications - Current Medications Current Medications: Generic Name Dose Route Start Last Admin Trade Name Freq PRN Reason Stop Dose Admin Acetaminophen 650 mg 06/21/21 21:30 06/21/21 22:00 Acetaminophen 325 Mg Tab PO 650 mg Q4H PRN Administration Pain MILD(1-3)/Fever >100.5/MARTINEZ Amlodipine Besylate 10 mg 06/21/21 22:00 06/22/21 10:38 Amlodipine 10 Mg Tab PO 10 mg QDAY JOSE Administration Carvedilol 12.5 mg 06/21/21 22:00 06/21/21 23:24 Carvedilol 12.5 Mg Tab PO 12.5 mg BID JOSE Administration Famotidine 20 mg 06/21/21 22:00 06/22/21 10:38 Famotidine 20 Mg Tab PO 20 mg BID JOSE Administration Heparin Sodium (Porcine) 5,000 unit 06/21/21 22:00 06/22/21 10:37 Heparin 5,000 Unit/1 Ml Vial SUB-Q 5,000 unit Q12HR JOSE Administration Hydralazine HCl 10 mg 06/21/21 21:33 Hydralazine 20 Mg/1 Ml Inj IV Q3H PRN Blood Pressure Hydromorphone HCl 0.5 mg 06/21/21 21:30 Hydromorphone 1 Mg/1 Ml Inj IV Q3H PRN Pain , Severe (7-10) Metoclopramide HCl 10 mg 06/21/21 21:30 Metoclopramide 10 Mg/2 Ml Inj IV Q6H PRN Nausea And Vomiting Ondansetron HCl 4 mg 06/21/21 21:30 Ondansetron 4 Mg/2 Ml Inj IV Q8H PRN Nausea And Vomiting Oxycodone/Acetaminophen 1 tab 06/21/21 21:30 Oxycodone /Acetaminophen 5-325mg Tab PO Q6H PRN Pain, Moderate (4-6) Sodium Chloride 10 ml 06/21/21 22:00 06/22/21 11:09 Sodium Chloride 0.9% 10 Ml Flush Syringe IV Not Given BID JOSE Sodium Chloride 10 ml 06/21/21 21:30 Sodium Chloride 0.9% 10 Ml Flush Syringe IV PRN PRN LINE FLUSH Valsartan 160 mg 06/21/21 22:00 06/22/21 10:37 Valsartan 160mg Tab PO 160 mg Q12H JOSE Administration
[2021-06-22] MEDS: carvediloL 12.5 MG TAB PO SCH (12:01)
[2021-06-22 13:13] LABS: Platelet Estimate Consistent w Auto; RBC Morphology Normal; Total Cells Counted 100
[2021-06-22] MEDS: hydrALAZINE 25 MG TAB PO SCH ×2 (13:14→17:20)
[2021-06-22] MEDS ORDERED: niCARdipine 50 MG in SODIUM CHLORIDE 0.9% 250ML 230 ML IV SCH (14:00)
[2021-06-23] MEDS: VALSARTAN 160MG TAB PO SCH ×2 (00:03→12:58)
[2021-06-23] MEDS: HEPARIN 5,000 UNIT/1 ML VIAL SUB-Q SCH ×3 (00:03→21:59)
[2021-06-23] MEDS: hydrALAZINE 25 MG TAB PO SCH ×5 (00:04→21:59)
[2021-06-23] MEDS: FAMOTIDINE 20 MG TAB PO SCH ×3 (00:06→21:59)
[2021-06-23] MEDS: carvediloL 12.5 MG TAB PO SCH ×2 (02:00→11:01)
[2021-06-23 06:20] LABS: Hematocrit 47.4 % (35.5-45.6); Hemoglobin 16.7 gm/dl (11.8-15.2); Mean Corpuscular HGB Conc 35 % (32-34); Mean Corpuscular Volume 92 fl (84-94); Red Blood Count 5.14 M/mm3 (3.65-5.03); Red Cell Distribution Width 13.7 % (13.2-15.2)
[2021-06-23 06:24] LABS: Platelet Count 156 K/mm3 (140-440)
[2021-06-23 09:37] LABS: C-Reactive Protein 2.4 mg/dL (0.00-1.30)
[2021-06-23] MEDS ORDERED: dexAMETHasone 4 MG/ML VIAL IV STA (10:57)
[2021-06-23] MEDS: amLODIPine 10 MG TAB PO SCH (11:00)
--- NOTE | 2021-06-23 11:02 | Progress Note ---
Assessment and Plan Assessment and plan: - Patient Problems Covid-19 infection (1) Hypertensive emergency Current Visit: Yes Status: Acute Plan to address problem: Patient initiated on IV hydralazine 10 mg every 3 as needed Valsartan discontinued Coreg 12.5 every 12 Amlodipine 10 mg daily Hydralazine po (2) Ataxia Current Visit: No Status: Acute Plan to address problem: Secondary to high blood pressure and severe headache CT head no stroke, no acute changes (3) Hyponatremia Current Visit: Yes Status: Acute Plan to address problem: Mild (4) DVT prophylaxis Current Visit: No Status: Acute Plan to address problem: On anticoagulation and GI prophylaxis 06/22/21 Patient with hypertensive emergency. BP still elevated. Add Hydralazine orally. Also to r/o Covid. Patient needs inpatient status to control BP 06/23/21 Patient with Covid-19 infection, hypertensive emergency. BP improved, Now off Nicardipine drip. Now has RORY with Cr 2.1. Discontinue Diovan given Overnight. Consult ID and Nephrology History Interval history: Headache blood pressure improved Covid-19 positive Hospitalist Physical - Physical exam Narrative exam: Gen:Not in acute distress, lying in bed, HEENT:Normocephalic, atraumatic Neck:supple, no JVD Lungs: Clear to auscultation bilaterally, no wheeze Heart:S1 and S2 reg, no murmurs, rubs or gallop Abd:Soft, non tender, non distended, normal bowel sounds Ext:No edema. no clubbing, no cyanosis Neuro:Awake, alert, oriented X 3, moves all ext, No focal neurological signs - Constitutional Vitals: Temp Pulse Resp BP Pulse Ox 102.9 F H 80 29 H 126/86 84 06/21/21 22:00 06/23/21 09:00 06/22/21 18:31 06/23/21 09:00 06/23/21 03:07 General appearance: Present: no acute distress HEART Score - HEART Score Age: 45-65 Risk factors: 1-2 risk factors Troponin: Troponin T < 0.010 ng/mL (0.00-0.029) 06/21/21 08:22 Troponin: < normal limit - Critical Actions Critical Actions: 0-3 pts:0.9-1.7%risk of adverse cardiac event.Candidate for discharge Results - Labs CBC & Chem 7: 08/28/21 05:33 06/23/21 08:38 Labs: Laboratory Last Values WBC 5.5 K/mm3 (4.5-11.0) 06/23/21 05:33 RBC 5.14 M/mm3 (3.65-5.03) H 06/23/21 05:33 Hgb 16.7 gm/dl (11.8-15.2) H 06/23/21 05:33 Hct 47.4 % (35.5-45.6) H D 06/23/21 05:33 MCV 92 fl (84-94) 06/23/21 05:33 MCH 33 pg (28-32) H 06/23/21 05:33 MCHC 35 % (32-34) H 06/23/21 05:33 RDW 13.7 % (13.2-15.2) 06/23/21 05:33 Plt Count 156 K/mm3 (140-440) 06/23/21 05:33 [place] % (Auto) [place] 06/22/21 05:49 Add Manual Diff Complete 06/22/21 05:49 Total Counted 100 06/22/21 05:49 Seg Neuts % (Manual) 63.0 % (40.0-70.0) 06/22/21 05:49 Lymphocytes % (Manual) 11.0 % (13.4-35.0) L 06/22/21 05:49 Monocytes % (Manual) 26.0 % (0.0-7.3) H 06/22/21 05:49 Basophils % (Manual) 2.0 % (0.0-1.8) H 06/21/21 08:22 Nucleated RBC % Not Reportable 06/22/21 05:49 Seg Neutrophils # Man 3.2 K/mm3 (1.8-7.7) 06/22/21 05:49 Band Neutrophils # 0.0 K/mm3 06/22/21 05:49 Lymphocytes # (Manual) 0.6 K/mm3 (1.2-5.4) L 06/22/21 05:49 Abs React Lymphs (Man) 0.0 K/mm3 06/22/21 05:49 Monocytes # (Manual) 1.3 K/mm3 (0.0-0.8) H 06/22/21 05:49 Eosinophils # (Manual) 0.0 K/mm3 (0.0-0.4) 06/22/21 05:49 Basophils # (Manual) 0.0 K/mm3 (0.0-0.1) 06/22/21 05:49 Metamyelocytes # 0.0 K/mm3 06/22/21 05:49 Myelocytes # 0.0 K/mm3 06/22/21 05:49 Promyelocytes # 0.0 K/mm3 06/22/21 05:49 Blast Cells # 0.0 K/mm3 06/22/21 05:49 WBC Morphology Not Reportable 06/22/21 05:49 Hypersegmented Neuts Not Reportable 06/22/21 05:49 Hyposegmented Neuts Not Reportable 06/22/21 05:49 Hypogranular Neuts Not Reportable 06/22/21 05:49 Smudge Cells Not Reportable 06/22/21 05:49 Toxic Granulation Not Reportable 06/22/21 05:49 Toxic Vacuolation Not Reportable 06/22/21 05:49 Dohle Bodies Not Reportable 06/22/21 05:49 Pelger-Huet Anomaly Not Reportable 06/22/21 05:49 Mary Rods Not Reportable 06/22/21 05:49 Platelet Estimate Consistent w auto 06/22/21 05:49 Clumped Platelets Not Reportable 06/22/21 05:49 Plt Clumps, EDTA Not Reportable 06/22/21 05:49 Large Platelets Not Reportable 06/22/21 05:49 Giant Platelets Not Reportable 06/22/21 05:49 Platelet Satelliting Not Reportable 06/22/21 05:49 Plt Morphology Comment Not Reportable 06/22/21 05:49 RBC Morphology Normal 06/22/21 05:49 Dimorphic RBCs Not Reportable 06/22/21 05:49 Polychromasia Not Reportable 06/22/21 05:49 Hypochromasia Not Reportable 06/22/21 05:49 Poikilocytosis Not Reportable 06/22/21 05:49 Anisocytosis Not Reportable 06/22/21 05:49 Microcytosis Not Reportable 06/22/21 05:49 Macrocytosis Not Reportable 06/22/21 05:49 Spherocytes Not Reportable 06/22/21 05:49 Pappenheimer Bodies Not Reportable 06/22/21 05:49 Sickle Cells Not Reportable 06/22/21 05:49 Target Cells Not Reportable 06/22/21 05:49 Tear Drop Cells Not Reportable 06/22/21 05:49 Ovalocytes Not Reportable 06/22/21 05:49 Helmet Cells Not Reportable 06/22/21 05:49 Andres-Paton Bodies Not Reportable 06/22/21 05:49 [place] Rings Not Reportable 06/22/21 05:49 [place] Cells Not Reportable 06/22/21 05:49 Bite Cells Not Reportable 06/22/21 05:49 Crenated Cell Not Reportable 06/22/21 05:49 Elliptocytes Not Reportable 06/22/21 05:49 Acanthocytes (Spur) Not Reportable 06/22/21 05:49 Rouleaux Not Reportable 06/22/21 05:49 Hemoglobin C Crystals Not Reportable 06/22/21 05:49 Schistocytes Not Reportable 06/22/21 05:49 Malaria parasites Not Reportable 06/22/21 05:49 ESR 6 mm/Hr (0-20) 06/21/21 08:22 Anup Bodies Not Reportable 06/22/21 05:49 Hem Pathologist Commnt No 06/22/21 05:49 D-Dimer 558.07 ng/mlDDU (0-234) H 06/23/21 08:38 Sodium 133 mmol/L (137-145) L 06/23/21 05:33 Potassium 3.8 mmol/L (3.6-5.0) 06/23/21 05:33 Chloride 97.3 mmol/L (98-107) L 06/23/21 05:33 Carbon Dioxide 20 mmol/L (22-30) L 06/23/21 05:33 Anion Gap 20 mmol/L 06/23/21 05:33 BUN 32 mg/dL (9-20) H 06/23/21 05:33 Creatinine 2.1 mg/dL (0.8-1.3) H D 06/23/21 05:33 Estimated GFR 40 ml/min 06/23/21 05:33 BUN/Creatinine Ratio 15 % 06/23/21 05:33 Glucose 105 mg/dL (75-100) H 06/23/21 08:38 Hemoglobin A1c 5.8 % (4-6) 06/22/21 05:49 Calcium 9.0 mg/dL (8.4-10.2) 06/23/21 05:33 Ferritin 849.2 ng/mL (30.0-300.0) H 06/23/21 08:38 Total Bilirubin 0.30 mg/dL (0.1-1.2) 06/22/21 05:49 AST 32 units/L (5-40) 06/22/21 05:49 ALT 16 units/L (7-56) 06/22/21 05:49 Alkaline Phosphatase 71 units/L (35-129) 06/22/21 05:49 Lactate Dehydrogenase 317 units/L (91-180) H 06/23/21 08:38 Troponin T < 0.010 ng/mL (0.00-0.029) 06/21/21 08:22 C-Reactive Protein 2.40 mg/dL (0.00-1.30) H 06/23/21 08:38 NT-Pro-B Natriuret Pep 969.3 pg/mL (0-900) H 06/21/21 08:22 Total Protein 7.3 g/dL (6.3-8.2) 06/22/21 05:49 Albumin 4.2 g/dL (3.9-5) 06/22/21 05:49 Albumin/Globulin Ratio 1.4 % 06/22/21 05:49 Urine Color Yellow (Yellow) 06/21/21 14:40 Urine Turbidity Clear (Clear) 06/21/21 14:40 Urine pH 6.0 (5.0-7.0) 06/21/21 14:40 Ur Specific [place] 1.020 (1.003-1.030) 06/21/21 14:40 Urine Protein 30 mg/dl mg/dL (Negative) 06/21/21 14:40 Urine Glucose (UA) Neg mg/dL (Negative) 06/21/21 14:40 Urine Ketones Neg mg/dL (Negative) 06/21/21 14:40 Urine Blood Sm (Negative) 06/21/21 14:40 Urine Nitrite Neg (Negative) 06/21/21 14:40 Urine Bilirubin Neg (Negative) 06/21/21 14:40 Urine Urobilinogen 2.0 mg/dL (<2.0) 06/21/21 14:40 Ur Leukocyte Esterase Neg (Negative) 06/21/21 14:40 Urine WBC (Auto) 1.0 /HPF (0.0-6.0) 06/21/21 14:40 Urine RBC (Auto) 3.0 /HPF (0.0-6.0) 06/21/21 14:40 U Epithel Cells (Auto) < 1.0 /HPF (0-13.0) 06/21/21 14:40 Urine Mucus Few /HPF 06/21/21 14:40 Coronavirus (PCR) Positive (Negative) A 06/22/21 Unknown Active Medications - Current Medications Current Medications: Generic Name Dose Route Start Last Admin Trade Name Freq PRN Reason Stop Dose Admin Acetaminophen 650 mg 06/21/21 21:30 06/21/21 22:00 Acetaminophen 325 Mg Tab PO 650 mg Q4H PRN Administration Pain MILD(1-3)/Fever >100.5/MARTINEZ Amlodipine Besylate 10 mg 06/21/21 22:00 06/22/21 10:38 Amlodipine 10 Mg Tab PO 10 mg QDAY JOSE Administration Carvedilol 12.5 mg 06/21/21 22:00 06/23/21 02:00 Carvedilol 12.5 Mg Tab PO 12.5 mg BID JOSE Administration Dexamethasone 8 mg 06/23/21 10:57 Dexamethasone 4 Mg/Ml Vial IV 06/23/21 10:58 ONCE STA Famotidine 20 mg 06/21/21 22:00 06/23/21 00:06 Famotidine 20 Mg Tab PO 20 mg BID JOSE Administration Heparin Sodium (Porcine) 5,000 unit 06/21/21 22:00 06/23/21 00:03 Heparin 5,000 Unit/1 Ml Vial SUB-Q 5,000 unit Q12HR JOSE Administration Hydralazine HCl 10 mg 06/21/21 21:33 Hydralazine 20 Mg/1 Ml Inj IV Q3H PRN Blood Pressure Hydralazine HCl 25 mg 06/22/21 12:00 06/23/21 09:00 Hydralazine 25 Mg Tab PO 25 mg Q8HR JOSE Administration Hydromorphone HCl 0.5 mg 06/21/21 21:30 Hydromorphone 1 Mg/1 Ml Inj IV Q3H PRN Pain , Severe (7-10) Nicardipine HCl 50 mg/ Sodium 250 mls @ 25 mls/hr 06/22/21 14:00 06/22/21 19:00 Chloride IV 5 mg/hr TITR JOSE 25 mls/hr Administration Protocol 5 MG/HR Metoclopramide HCl 10 mg 06/21/21 21:30 Metoclopramide 10 Mg/2 Ml Inj IV Q6H PRN Nausea And Vomiting Ondansetron HCl 4 mg 06/21/21 21:30 Ondansetron 4 Mg/2 Ml Inj IV Q8H PRN Nausea And Vomiting Oxycodone/Acetaminophen 1 tab 06/21/21 21:30 06/23/21 09:00 Oxycodone /Acetaminophen 5-325mg Tab PO 1 tab Q6H PRN Administration Pain, Moderate (4-6) Sodium Chloride 10 ml 06/21/21 22:00 06/23/21 05:20 Sodium Chloride 0.9% 10 Ml Flush Syringe IV 10 ml BID JOSE Administration Sodium Chloride 10 ml 06/21/21 21:30 Sodium Chloride 0.9% 10 Ml Flush Syringe IV PRN PRN LINE FLUSH
--- NOTE | 2021-06-23 11:34 | Consultation ---
History of Present Illness - Reason for Consult Consult date: 06/23/21 COVID-19 Requesting physician: AMANDA CASTELLANOS - History of Present Illness The patient is a 51-year-old male with hypertension, tobacco use admitted to the hospital with COVID-19 pneumonia, hypertensive urgency. Labs showed normal WBC, D-dimer 558, CRP 2.4, LDH 317, ferritin 849. Chest x-ray did not reveal pneumonia but patient developed hypoxia on room air. Review of Systems: reviewed in the chart, unable to obtain, minimize risk of transmission Medications and Allergies Allergies Allergy/AdvReac Type Severity Reaction Status Date / Time No Known Allergies Allergy Verified 06/21/21 07:33 Home Medications Medication Instructions Recorded Confirmed Last Taken Type hydrALAZINE [Apresoline TAB] 25 mg PO Q8HR #90 tablet 08/31/15 Unknown Rx Acetaminophen [Acetaminophen TAB] 500 mg PO Q6HR PRN #30 tablet 11/15/17 Unknown Rx Cyclobenzaprine [Flexeril] 10 mg PO TID PRN #15 tablet 11/15/17 Unknown Rx amLODIPine 10 mg PO DAILY #30 tablet 11/15/17 Unknown Rx Active Meds: Active Medications Acetaminophen (Acetaminophen 325 Mg Tab) 650 mg PO Q4H PRN PRN Reason: Pain MILD(1-3)/Fever >100.5/MARTINEZ Last Admin: 06/21/21 22:00 Dose: 650 mg Documented by: Amlodipine Besylate (Amlodipine 10 Mg Tab) 10 mg PO QDAY [facility] Last Admin: 06/23/21 11:00 Dose: Not Given Documented by: Carvedilol (Carvedilol 12.5 Mg Tab) 12.5 mg PO BID [facility] Last Admin: 06/23/21 11:01 Dose: Not Given Documented by: Dexamethasone (Dexamethasone 4 Mg Tab) 8 mg PO ONCE ONE Stop: 06/23/21 12:01 Dexamethasone (Dexamethasone 4 Mg Tab) 8 mg PO Q24HR [facility] Famotidine (Famotidine 20 Mg Tab) 20 mg PO BID [facility] Last Admin: 06/23/21 00:06 Dose: 20 mg Documented by: Heparin Sodium (Porcine) (Heparin 5,000 Unit/1 Ml Vial) 5,000 unit SUB-Q Q12HR [facility] Last Admin: 06/23/21 00:03 Dose: 5,000 unit Documented by: Hydralazine HCl (Hydralazine 20 Mg/1 Ml Inj) 10 mg IV Q3H PRN PRN Reason: Blood Pressure Hydralazine HCl (Hydralazine 25 Mg Tab) 25 mg PO Q8HR [facility] Last Admin: 06/23/21 09:00 Dose: 25 mg Documented by: Hydromorphone HCl (Hydromorphone 1 Mg/1 Ml Inj) 0.5 mg IV Q3H PRN PRN Reason: Pain , Severe (7-10) Nicardipine HCl 50 mg/ Sodium (Chloride) 250 mls @ 25 mls/hr IV TITR JOSE; Protocol Last Admin: 06/22/21 19:00 Dose: 5 mg/hr, 25 mls/hr Documented by: Metoclopramide HCl (Metoclopramide 10 Mg/2 Ml Inj) 10 mg IV Q6H PRN PRN Reason: Nausea And Vomiting Ondansetron HCl (Ondansetron 4 Mg/2 Ml Inj) 4 mg IV Q8H PRN PRN Reason: Nausea And Vomiting Oxycodone/Acetaminophen (Oxycodone /Acetaminophen 5-325mg Tab) 1 tab PO Q6H PRN PRN Reason: Pain, Moderate (4-6) Last Admin: 06/23/21 09:00 Dose: 1 tab Documented by: Sodium Chloride (Sodium Chloride 0.9% 10 Ml Flush Syringe) 10 ml IV BID [facility] Last Admin: 06/23/21 05:20 Dose: 10 ml Documented by: Sodium Chloride (Sodium Chloride 0.9% 10 Ml Flush Syringe) 10 ml IV PRN PRN PRN Reason: LINE FLUSH Physical Examination - Physical Exam Narrative exam: Physical Exam (reviewed in chart to minimize risk of transmission) Constitutional: deferred Head, Ears, Nose: deferred Eyes: deferred Neck: deferred Oral: deferred Cardiovascular: deferred Respiratory: deferred GI: deferred Musculoskeletal: deferred Skin: deferred Hem/Lymphatic: deferred Psych: deferred Neurological: deferred - Constitutional Vitals: Vital Signs Temp Pulse Resp BP Pulse Ox 102.9 F H 77 27 H 121/86 89 06/21/21 22:00 06/23/21 10:31 06/23/21 10:31 06/23/21 10:31 06/23/21 10:31 Results - Labs CBC & Chem 7: 06/23/21 05:33 06/23/21 08:38 Labs: Abnormal lab results 06/22/21 06/22/21 06/23/21 Range/Units 05:49 Unknown 05:33 RBC 5.14 H (3.65-5.03) M/mm3 Hgb 16.7 H (11.8-15.2) gm/dl Hct 47.4 H D (35.5-45.6) % MCH 33 H (28-32) pg MCHC 35 H (32-34) % Lymphocytes % (Manual) 11.0 L (13.4-35.0) % Monocytes % (Manual) 26.0 H (0.0-7.3) % Lymphocytes # (Manual) 0.6 L (1.2-5.4) K/mm3 Monocytes # (Manual) 1.3 H (0.0-0.8) K/mm3 D-Dimer (0-234) ng/mlDDU Sodium (137-145) mmol/L Chloride (98-107) mmol/L Carbon Dioxide (22-30) mmol/L BUN (9-20) mg/dL Creatinine (0.8-1.3) mg/dL Glucose (75-100) mg/dL Ferritin (30.0-300.0) ng/mL Lactate Dehydrogenase (91-180) units/L C-Reactive Protein (0.00-1.30) mg/dL Coronavirus (PCR) Positive A (Negative) 06/23/21 06/23/21 06/23/21 Range/Units 05:33 08:38 08:38 RBC (3.65-5.03) M/mm3 Hgb (11.8-15.2) gm/dl Hct (35.5-45.6) % MCH (28-32) pg MCHC (32-34) % Lymphocytes % (Manual) (13.4-35.0) % Monocytes % (Manual) (0.0-7.3) % Lymphocytes # (Manual) (1.2-5.4) K/mm3 Monocytes # (Manual) (0.0-0.8) K/mm3 D-Dimer 558.07 H (0-234) ng/mlDDU Sodium 133 L (137-145) mmol/L Chloride 97.3 L (98-107) mmol/L Carbon Dioxide 20 L (22-30) mmol/L BUN 32 H (9-20) mg/dL Creatinine 2.1 H D (0.8-1.3) mg/dL Glucose 105 H (75-100) mg/dL Ferritin (30.0-300.0) ng/mL Lactate Dehydrogenase 317 H (91-180) units/L C-Reactive Protein 2.40 H (0.00-1.30) mg/dL Coronavirus (PCR) (Negative) 06/23/21 Range/Units 08:38 RBC (3.65-5.03) M/mm3 Hgb (11.8-15.2) gm/dl Hct (35.5-45.6) % MCH (28-32) pg MCHC (32-34) % Lymphocytes % (Manual) (13.4-35.0) % Monocytes % (Manual) (0.0-7.3) % Lymphocytes # (Manual) (1.2-5.4) K/mm3 Monocytes # (Manual) (0.0-0.8) K/mm3 D-Dimer (0-234) ng/mlDDU Sodium (137-145) mmol/L Chloride (98-107) mmol/L Carbon Dioxide (22-30) mmol/L BUN (9-20) mg/dL Creatinine (0.8-1.3) mg/dL Glucose (75-100) mg/dL Ferritin 849.2 H (30.0-300.0) ng/mL Lactate Dehydrogenase (91-180) units/L C-Reactive Protein (0.00-1.30) mg/dL Coronavirus (PCR) (Negative) - Imaging and Cardiology Chest x-ray: report reviewed Assessment and Plan Cultures: SARS CoV2 PCR: Positive A/P: 51-year-old male with hypertension, tobacco use: #Bilateral pneumonia: Secondary to COVID-19 #Acute hypoxic respiratory failure: Secondary to above #Hypertensive emergency Recs: IV/PO Dexamethasone x 10 days IV remdesivir ordered for 5 days Does not meet criteria for Actemra prophylactic anticoagulation based on d-dimer per hospital protocol trend ferritin, d-dimer, CRP every 2-3 days Daily ambulatory saturations, when weaned off oxygen, can be discharged home, does not need to complete full 5 days of remdesivir ID will sign off. Please reconsult as needed. Armin Lopez MD, FACP [facility] ([facility] O: [phone] F: [phone]
[2021-06-23] MEDS ORDERED: DEXAMETHASONE 4 MG TAB PO ONE (12:00)
[2021-06-23] MEDS ORDERED: REMDESIVIR 200 MG in SODIUM CHLORIDE 0.9% 250ML 250 ML IV ONE (12:30)
--- NOTE | 2021-06-23 12:32 | Consultation ---
History of Present Illness - Reason for Consult Consult date: 06/23/21 acute renal failure - History of Present Illness 51-year-old -[place] male was admitted for worsening headaches. In the emergency room hs blood pressure was severely elevated. CT of the head was negative for acute process. CXR showd cardiomegaly. he was tested positive for COVID-19. he was found to have abnromal renal function and renal consult was requested. currently he is on isolation for COVID-19, chart reviewed Medications and Allergies Allergies Allergy/AdvReac Type Severity Reaction Status Date / Time No Known Allergies Allergy Verified 06/21/21 07:33 Home Medications Medication Instructions Recorded Confirmed Last Taken Type hydrALAZINE [Apresoline TAB] 25 mg PO Q8HR #90 tablet 08/31/15 Unknown Rx Acetaminophen [Acetaminophen TAB] 500 mg PO Q6HR PRN #30 tablet 11/15/17 Unknown Rx Cyclobenzaprine [Flexeril] 10 mg PO TID PRN #15 tablet 11/15/17 Unknown Rx amLODIPine 10 mg PO DAILY #30 tablet 11/15/17 Unknown Rx Active Meds: Active Medications Acetaminophen (Acetaminophen 325 Mg Tab) 650 mg PO Q4H PRN PRN Reason: Pain MILD(1-3)/Fever >100.5/MARTINEZ Last Admin: 06/21/21 22:00 Dose: 650 mg Documented by: Amlodipine Besylate (Amlodipine 10 Mg Tab) 10 mg PO QDAY [facility] Last Admin: 06/23/21 11:00 Dose: Not Given Documented by: Carvedilol (Carvedilol 12.5 Mg Tab) 12.5 mg PO BID [facility] Last Admin: 06/23/21 11:01 Dose: Not Given Documented by: Dexamethasone (Dexamethasone 4 Mg Tab) 8 mg PO Q24HR [facility] Famotidine (Famotidine 20 Mg Tab) 20 mg PO BID [facility] Last Admin: 06/23/21 00:06 Dose: 20 mg Documented by: Heparin Sodium (Porcine) (Heparin 5,000 Unit/1 Ml Vial) 5,000 unit SUB-Q Q12HR [facility] Last Admin: 06/23/21 00:03 Dose: 5,000 unit Documented by: Hydralazine HCl (Hydralazine 20 Mg/1 Ml Inj) 10 mg IV Q3H PRN PRN Reason: Blood Pressure Hydralazine HCl (Hydralazine 25 Mg Tab) 25 mg PO Q8HR [facility] Last Admin: 06/23/21 09:00 Dose: 25 mg Documented by: Hydromorphone HCl (Hydromorphone 1 Mg/1 Ml Inj) 0.5 mg IV Q3H PRN PRN Reason: Pain , Severe (7-10) Nicardipine HCl 50 mg/ Sodium (Chloride) 250 mls @ 25 mls/hr IV TITR [facility]; Protocol Last Admin: 06/22/21 19:00 Dose: 5 mg/hr, 25 mls/hr Documented by: REMDESIVIR 200 mg/ Sodium (Chloride) 250 mls @ 500 mls/hr IV ONCE ONE Stop: 06/23/21 12:59 REMDESIVIR 100 mg/ Sodium (Chloride) 250 mls @ 500 mls/hr IV Q24HR@2100 [facility] Stop: 06/27/21 21:29 Metoclopramide HCl (Metoclopramide 10 Mg/2 Ml Inj) 10 mg IV Q6H PRN PRN Reason: Nausea And Vomiting Ondansetron HCl (Ondansetron 4 Mg/2 Ml Inj) 4 mg IV Q8H PRN PRN Reason: Nausea And Vomiting Oxycodone/Acetaminophen (Oxycodone /Acetaminophen 5-325mg Tab) 1 tab PO Q6H PRN PRN Reason: Pain, Moderate (4-6) Last Admin: 06/23/21 09:00 Dose: 1 tab Documented by: Sodium Chloride (Sodium Chloride 0.9% 10 Ml Flush Syringe) 10 ml IV BID [facility] Last Admin: 06/23/21 05:20 Dose: 10 ml Documented by: Sodium Chloride (Sodium Chloride 0.9% 10 Ml Flush Syringe) 10 ml IV PRN PRN PRN Reason: LINE FLUSH Sodium Chloride (Sodium Chloride 0.9% 50 Ml Ivpb) 50 ml IV Q24HR@2100 [facility] Stop: 06/27/21 21:01 Exam - Vital Signs Vital signs: Vital Signs Temp Pulse Resp BP Pulse Ox 99.6 F 97 H 22 213/138 93 06/21/21 07:36 06/21/21 07:36 06/21/21 07:36 06/21/21 07:36 06/21/21 07:36 Results - Lab Results 06/23/21 05:33 06/23/21 08:38 Most recent lab results Calcium 9.0 mg/dL (8.4-10.2) 06/23/21 05:33 Assessment and Plan Hypertensive emergency Acute renal failure COVID-19 infection Ataxia Hyponatremia baseline kidney function was normal will check renal US will check urine lytes, protein and UA started on NS 50 cc/h renally dose meds strict I&O daily weight
[2021-06-23 13:56] LABS: Albumin 4.4 g/dL (3.9-5); Calcium 9.4 mg/dL (8.4-10.2)
[2021-06-23] MEDS: SODIUM CHLORIDE 0.9% 50 ML IVPB IV SCH (22:00)
[2021-06-24 00:17] LABS: Creatinine,Urine 212.1 mg/dL (0.1-20.0)
[2021-06-24 00:24] LABS: Amorphous Crystals,Urine Few; Bacteria,Urine 1+ /HPF (Negative); Bilirubin,Urine NEG (Negative); Blood,Urine SM (Negative); Color,Urine Yellow (Yellow); Mucus,Urine FEW /HPF; Urobilinogen,Urine < 2.0 mg/dL (<2.0)
[2021-06-24] MEDS: carvediloL 12.5 MG TAB PO SCH (00:48)
[2021-06-24 06:14] LABS: Hematocrit 46.9 % (35.5-45.6); Hemoglobin 16.6 gm/dl (11.8-15.2); Mean Corpuscular HGB Conc 35 % (32-34); Mean Corpuscular Volume 93 fl (84-94); Red Blood Count 5.06 M/mm3 (3.65-5.03); Red Cell Distribution Width 13.8 % (13.2-15.2)
[2021-06-24] MEDS: hydrALAZINE 25 MG TAB PO SCH ×3 (06:28→22:34)
[2021-06-24 06:32] LABS: Albumin 4.1 g/dL (3.9-5); Calcium 8.9 mg/dL (8.4-10.2)
[2021-06-24 07:30] LABS: Platelet Count 145 K/mm3 (140-440)
[2021-06-24 09:35] LABS: Total Cells Counted 100
[2021-06-24 09:36] LABS: Large Platelets Few; Platelet Estimate Consistent w Auto; RBC Morphology Normal
[2021-06-24] MEDS ORDERED: dexAMETHasone 4 MG/ML VIAL IV SCH (10:00)
[2021-06-24] MEDS ORDERED: DEXAMETHASONE 4 MG TAB PO SCH (10:00)
--- NOTE | 2021-06-24 11:28 | Progress Note ---
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 Subjective Date of service: 06/24/21 Principal diagnosis: RORY Interval history: on isolation for COVID, chart reviewed Objective - Vital Signs Vital signs: Vital Signs - 12hr 06/24/21 06/24/21 06/24/21 01:01 02:01 03:01 Temperature Pulse Rate Respiratory Rate Blood Pressure 155/99 141/76 133/99 O2 Sat by Pulse 98 96 95 Oximetry 06/24/21 06/24/21 06/24/21 04:01 04:15 05:01 Temperature 98.6 F Pulse Rate Respiratory Rate Blood Pressure 131/91 117/78 O2 Sat by Pulse Oximetry 06/24/21 06/24/21 06/24/21 06:01 07:00 08:01 Temperature Pulse Rate 59 L 57 L Respiratory 19 Rate Blood Pressure 119/87 107/63 144/71 O2 Sat by Pulse 100 Oximetry 06/24/21 06/24/21 09:01 10:01 Temperature Pulse Rate 61 55 L Respiratory 16 19 Rate Blood Pressure 129/100 127/86 O2 Sat by Pulse 97 99 Oximetry - Lab 06/24/21 05:08 06/24/21 05:08 Most recent lab results Calcium 8.9 mg/dL (8.4-10.2) 06/24/21 05:08 Urine Creatinine 212.1 mg/dL (0.1-20.0) H 06/23/21 Unknown Urine Sodium 40 mmol/L 06/23/21 Unknown Medications & Allergies - Medications Allergies/Adverse Reactions: Allergies No Known Allergies Allergy (Verified 06/21/21 07:33) Home Medications: Home Medications Medication Instructions Recorded Confirmed Last Taken Type hydrALAZINE [Apresoline TAB] 25 mg PO Q8HR #90 tablet 08/31/15 Unknown Rx Acetaminophen [Acetaminophen TAB] 500 mg PO Q6HR PRN #30 tablet 11/15/17 Unknown Rx Cyclobenzaprine [Flexeril] 10 mg PO TID PRN #15 tablet 11/15/17 Unknown Rx amLODIPine 10 mg PO DAILY #30 tablet 11/15/17 Unknown Rx Active Medications: Generic Name Dose Route Start Last Admin Trade Name Freq PRN Reason Stop Dose Admin Acetaminophen 650 mg 06/21/21 21:30 06/21/21 22:00 Acetaminophen 325 Mg Tab PO 650 mg Q4H PRN Administration Pain MILD(1-3)/Fever >100.5/MARTINEZ Amlodipine Besylate 10 mg 06/21/21 22:00 06/23/21 11:00 Amlodipine 10 Mg Tab PO Not Given QDAY [facility] Dexamethasone 8 mg 06/24/21 10:00 Dexamethasone 4 Mg Tab PO 07/02/21 10:01 Q24HR [facility] Famotidine 20 mg 06/21/21 22:00 06/23/21 21:59 Famotidine 20 Mg Tab PO 20 mg BID [facility] Administration Heparin Sodium (Porcine) 5,000 unit 06/21/21 22:00 06/23/21 21:59 Heparin 5,000 Unit/1 Ml Vial SUB-Q 5,000 unit Q12HR [facility] Administration Hydralazine HCl 10 mg 06/21/21 21:33 Hydralazine 20 Mg/1 Ml Inj IV Q3H PRN Blood Pressure Hydralazine HCl 25 mg 06/22/21 12:00 06/24/21 06:28 Hydralazine 25 Mg Tab PO Not Given Q8HR [facility] Hydromorphone HCl 0.5 mg 06/21/21 21:30 Hydromorphone 1 Mg/1 Ml Inj IV Q3H PRN Pain , Severe (7-10) Nicardipine HCl 50 mg/ Sodium 250 mls @ 25 mls/hr 06/22/21 14:00 06/22/21 19:00 Chloride IV 5 mg/hr TITR JOSE 25 mls/hr Administration Protocol 5 MG/HR REMDESIVIR 100 mg/ Sodium 250 mls @ 500 mls/hr 06/24/21 21:00 Chloride IV 06/27/21 21:29 Q24HR@2100 [facility] Metoclopramide HCl 10 mg 06/21/21 21:30 Metoclopramide 10 Mg/2 Ml Inj IV Q6H PRN Nausea And Vomiting Ondansetron HCl 4 mg 06/21/21 21:30 Ondansetron 4 Mg/2 Ml Inj IV Q8H PRN Nausea And Vomiting Oxycodone/Acetaminophen 1 tab 06/21/21 21:30 06/23/21 09:00 Oxycodone /Acetaminophen 5-325mg Tab PO 1 tab Q6H PRN Administration Pain, Moderate (4-6) Sodium Chloride 10 ml 06/21/21 22:00 06/23/21 23:38 Sodium Chloride 0.9% 10 Ml Flush Syringe IV 10 ml BID JOSE Administration Sodium Chloride 10 ml 06/21/21 21:30 Sodium Chloride 0.9% 10 Ml Flush Syringe IV PRN PRN LINE FLUSH Sodium Chloride 50 ml 06/23/21 21:00 06/23/21 22:00 Sodium Chloride 0.9% 50 Ml Ivpb IV 06/27/21 21:01 50 ml Q24HR@2100 JOSE Administration
[2021-06-24] MEDS ORDERED: SODIUM CHLORIDE 0.9% 1000 ML 1,000 ML IV SCH (11:30)
[2021-06-24] MEDS: HEPARIN 5,000 UNIT/1 ML VIAL SUB-Q SCH ×2 (11:46→22:28)
[2021-06-24] MEDS: FAMOTIDINE 20 MG TAB PO SCH ×2 (11:46→22:28)
[2021-06-24] MEDS: amLODIPine 10 MG TAB PO SCH (11:47)
--- NOTE | 2021-06-24 12:34 | Progress Note ---
Assessment and Plan Assessment and plan: - Patient Problems Covid-19 infection (1) Hypertensive emergency Current Visit: Yes Status: Acute Plan to address problem: Patient initiated on IV hydralazine 10 mg every 3 as needed Valsartan discontinued Coreg 12.5 every 12 Amlodipine 10 mg daily Hydralazine po (2) Ataxia Current Visit: No Status: Acute Plan to address problem: Secondary to high blood pressure and severe headache CT head no stroke, no acute changes (3) Hyponatremia Current Visit: Yes Status: Acute Plan to address problem: Mild (4) DVT prophylaxis Current Visit: No Status: Acute Plan to address problem: On anticoagulation and GI prophylaxis 06/22/21 Patient with hypertensive emergency. BP still elevated. Add Hydralazine orally. Also to r/o Covid. Patient needs inpatient status to control BP 06/23/21 Patient with Covid-19 infection, hypertensive emergency. BP improved, Now off Nicardipine drip. Now has RORY with Cr 2.1. Discontinue Diovan given Overnight. Consult ID and Nephrology 06/24/21 patient with Covid- 19 infection. Also had hypertensive emergency, but BP now improved. RORY due to ATN, worsening. Cr 2.6 today. Nephrology following History Interval history: Headache blood pressure improved Covid-19 positive Hospitalist Physical - Physical exam Narrative exam: Gen:Not in acute distress, lying in bed, HEENT:Normocephalic, atraumatic Neck:supple, no JVD Lungs: Clear to auscultation bilaterally, no wheeze Heart:S1 and S2 reg, no murmurs, rubs or gallop Abd:Soft, non tender, non distended, normal bowel sounds Ext:No edema. no clubbing, no cyanosis Neuro:Awake, alert, oriented X 3, moves all ext, No focal neurological signs - Constitutional Vitals: Temp Pulse Resp BP Pulse Ox 98.6 F 74 19 130/94 96 06/24/21 04:15 06/24/21 11:01 06/24/21 10:01 06/24/21 11:01 06/24/21 11:01 General appearance: Present: no acute distress HEART Score - HEART Score Age: 45-65 Risk factors: 1-2 risk factors Troponin: Troponin T < 0.010 ng/mL (0.00-0.029) 06/21/21 08:22 Troponin: < normal limit - Critical Actions Critical Actions: 0-3 pts:0.9-1.7%risk of adverse cardiac event.Candidate for discharge Results - Labs CBC & Chem 7: 06/24/21 05:08 06/24/21 05:08 Labs: Laboratory Last Values WBC 2.7 K/mm3 (4.5-11.0) L 06/24/21 05:08 RBC 5.06 M/mm3 (3.65-5.03) H 06/24/21 05:08 Hgb 16.6 gm/dl (11.8-15.2) H 06/24/21 05:08 Hct 46.9 % (35.5-45.6) H 06/24/21 05:08 MCV 93 fl (84-94) 06/24/21 05:08 MCH 33 pg (28-32) H 06/24/21 05:08 MCHC 35 % (32-34) H 06/24/21 05:08 RDW 13.8 % (13.2-15.2) 06/24/21 05:08 Plt Count 145 K/mm3 (140-440) 06/24/21 05:08 Mobile % (Auto) Outboard Technician 06/24/21 05:08 Add Manual Diff Complete 06/24/21 05:08 Total Counted 100 06/24/21 05:08 Seg Neuts % (Manual) 39.0 % (40.0-70.0) L 06/24/21 05:08 Lymphocytes % (Manual) 40.0 % (13.4-35.0) H 06/24/21 05:08 Monocytes % (Manual) 21.0 % (0.0-7.3) H 06/24/21 05:08 Basophils % (Manual) 2.0 % (0.0-1.8) H 06/21/21 08:22 Nucleated RBC % Not Reportable 06/24/21 05:08 Seg Neutrophils # Man 1.1 K/mm3 (1.8-7.7) L 06/24/21 05:08 Band Neutrophils # 0.0 K/mm3 06/24/21 05:08 Lymphocytes # (Manual) 1.1 K/mm3 (1.2-5.4) L 06/24/21 05:08 Abs React Lymphs (Man) 0.0 K/mm3 06/24/21 05:08 Monocytes # (Manual) 0.6 K/mm3 (0.0-0.8) 06/24/21 05:08 Eosinophils # (Manual) 0.0 K/mm3 (0.0-0.4) 06/24/21 05:08 Basophils # (Manual) 0.0 K/mm3 (0.0-0.1) 06/24/21 05:08 Metamyelocytes # 0.0 K/mm3 06/24/21 05:08 Myelocytes # 0.0 K/mm3 06/24/21 05:08 Promyelocytes # 0.0 K/mm3 06/24/21 05:08 Blast Cells # 0.0 K/mm3 06/24/21 05:08 WBC Morphology Not Reportable 06/24/21 05:08 Hypersegmented Neuts Not Reportable 06/24/21 05:08 Hyposegmented Neuts Not Reportable 06/24/21 05:08 Hypogranular Neuts Not Reportable 06/24/21 05:08 Smudge Cells Not Reportable 06/24/21 05:08 Toxic Granulation Not Reportable 06/24/21 05:08 Toxic Vacuolation Not Reportable 06/24/21 05:08 Dohle Bodies Not Reportable 06/24/21 05:08 Pelger-Huet Anomaly Not Reportable 06/24/21 05:08 Mary Rods Not Reportable 06/24/21 05:08 Platelet Estimate Consistent w auto 06/24/21 05:08 Clumped Platelets Not Reportable 06/24/21 05:08 Plt Clumps, EDTA Not Reportable 06/24/21 05:08 Large Platelets Few 06/24/21 05:08 Giant Platelets Not Reportable 06/24/21 05:08 Platelet Satelliting Not Reportable 06/24/21 05:08 Plt Morphology Comment Not Reportable 06/24/21 05:08 RBC Morphology Normal 06/24/21 05:08 Dimorphic RBCs Not Reportable 06/24/21 05:08 Polychromasia Not Reportable 06/24/21 05:08 Hypochromasia Not Reportable 06/24/21 05:08 Poikilocytosis Not Reportable 06/24/21 05:08 Anisocytosis Not Reportable 06/24/21 05:08 Microcytosis Not Reportable 06/24/21 05:08 Macrocytosis Not Reportable 06/24/21 05:08 Spherocytes Not Reportable 06/24/21 05:08 Pappenheimer Bodies Not Reportable 06/24/21 05:08 Sickle Cells Not Reportable 06/24/21 05:08 Target Cells Not Reportable 06/24/21 05:08 Tear Drop Cells Not Reportable 06/24/21 05:08 Ovalocytes Not Reportable 06/24/21 05:08 Helmet Cells Not Reportable 06/24/21 05:08 Andres-[place] Bodies Not Reportable 06/24/21 05:08 [place] Rings Not Reportable 06/24/21 05:08 [place] Cells Not Reportable 06/24/21 05:08 Bite Cells Not Reportable 06/24/21 05:08 Crenated Cell Not Reportable 06/24/21 05:08 Elliptocytes Not Reportable 06/24/21 05:08 Acanthocytes (Spur) Not Reportable 06/24/21 05:08 Rouleaux Not Reportable 06/24/21 05:08 Hemoglobin C Crystals Not Reportable 06/24/21 05:08 Schistocytes Not Reportable 06/24/21 05:08 Malaria parasites Not Reportable 06/24/21 05:08 ESR 6 mm/Hr (0-20) 06/21/21 08:22 Anup Bodies Not Reportable 06/24/21 05:08 Hem Pathologist Commnt No 06/24/21 05:08 D-Dimer 558.07 ng/mlDDU (0-234) H 06/23/21 08:38 Sodium 134 mmol/L (137-145) L 06/24/21 05:08 Potassium 3.8 mmol/L (3.6-5.0) 06/24/21 05:08 Chloride 98.0 mmol/L (98-107) 06/24/21 05:08 Carbon Dioxide 21 mmol/L (22-30) L 06/24/21 05:08 Anion Gap 19 mmol/L 06/24/21 05:08 BUN 56 mg/dL (9-20) H 06/24/21 05:08 Creatinine 2.6 mg/dL (0.8-1.3) H 06/24/21 05:08 Estimated GFR 32 ml/min 06/24/21 05:08 BUN/Creatinine Ratio 22 % 06/24/21 05:08 Glucose 138 mg/dL (75-100) H 06/24/21 05:08 Hemoglobin A1c 5.8 % (4-6) 06/22/21 05:49 Calcium 8.9 mg/dL (8.4-10.2) 06/24/21 05:08 Ferritin 849.2 ng/mL (30.0-300.0) H 06/23/21 08:38 Total Bilirubin 0.20 mg/dL (0.1-1.2) 06/24/21 05:08 AST 56 units/L (5-40) H 06/24/21 05:08 ALT 28 units/L (7-56) 06/24/21 05:08 Alkaline Phosphatase 70 units/L (35-129) 06/24/21 05:08 Lactate Dehydrogenase 317 units/L (91-180) H 06/23/21 08:38 Total Creatine Kinase 1368 units/L (55-170) H 06/23/21 12:56 Troponin T < 0.010 ng/mL (0.00-0.029) 06/21/21 08:22 C-Reactive Protein 2.40 mg/dL (0.00-1.30) H 06/23/21 08:38 NT-Pro-B Natriuret Pep 969.3 pg/mL (0-900) H 06/21/21 08:22 Total Protein 7.6 g/dL (6.3-8.2) 06/24/21 05:08 Albumin 4.1 g/dL (3.9-5) 06/24/21 05:08 Albumin/Globulin Ratio 1.2 % 06/24/21 05:08 Procalcitonin 0.24 ng/mL (<0.15) 06/23/21 08:38 Urine Color Yellow (Yellow) 06/23/21 Unknown Urine Turbidity Slightly-cloudy (Clear) 06/23/21 Unknown Urine pH 5.0 (5.0-7.0) 06/23/21 Unknown Ur Specific [place] 1.019 (1.003-1.030) 06/23/21 Unknown Urine Protein 30 mg/dl mg/dL (Negative) 06/23/21 Unknown Urine Glucose (UA) Neg mg/dL (Negative) 06/23/21 Unknown Urine Ketones Neg mg/dL (Negative) 06/23/21 Unknown Urine Blood Sm (Negative) 06/23/21 Unknown Urine Nitrite Neg (Negative) 06/23/21 Unknown Urine Bilirubin Neg (Negative) 06/23/21 Unknown Urine Urobilinogen < 2.0 mg/dL (<2.0) 06/23/21 Unknown Ur Leukocyte Esterase Neg (Negative) 06/23/21 Unknown Urine WBC (Auto) 1.0 /HPF (0.0-6.0) 06/23/21 Unknown Urine RBC (Auto) 2.0 /HPF (0.0-6.0) 06/23/21 Unknown U Epithel Cells (Auto) < 1.0 /HPF (0-13.0) 06/23/21 Unknown Urine Bacteria (Auto) 1+ /HPF (Negative) 06/23/21 Unknown Amorphous Crystals Few 06/23/21 Unknown Urine Mucus Few /HPF 06/23/21 Unknown Urine Creatinine 212.1 mg/dL (0.1-20.0) H 06/23/21 Unknown Urine Sodium 40 mmol/L 06/23/21 Unknown Urine Urea Nitrogen 1364 06/23/21 Unknown Coronavirus (PCR) Positive (Negative) A 06/22/21 Unknown Active Medications - Current Medications Current Medications: Generic Name Dose Route Start Last Admin Trade Name Freq PRN Reason Stop Dose Admin Acetaminophen 650 mg 06/21/21 21:30 06/21/21 22:00 Acetaminophen 325 Mg Tab PO 650 mg Q4H PRN Administration Pain MILD(1-3)/Fever >100.5/MARTINEZ Amlodipine Besylate 10 mg 06/21/21 22:00 06/24/21 11:47 Amlodipine 10 Mg Tab PO Not Given QDAY JOSE Dexamethasone 8 mg 06/24/21 10:00 06/24/21 11:46 Dexamethasone 4 Mg Tab PO 07/02/21 10:01 8 mg Q24HR JOSE Administration Famotidine 20 mg 06/21/21 22:00 06/24/21 11:46 Famotidine 20 Mg Tab PO 20 mg BID JOSE Administration Heparin Sodium (Porcine) 5,000 unit 06/21/21 22:00 06/24/21 11:46 Heparin 5,000 Unit/1 Ml Vial SUB-Q 5,000 unit Q12HR JOSE Administration Hydralazine HCl 10 mg 06/21/21 21:33 Hydralazine 20 Mg/1 Ml Inj IV Q3H PRN Blood Pressure Hydralazine HCl 25 mg 06/22/21 12:00 06/24/21 06:28 Hydralazine 25 Mg Tab PO Not Given Q8HR JOSE Hydromorphone HCl 0.5 mg 06/21/21 21:30 Hydromorphone 1 Mg/1 Ml Inj IV Q3H PRN Pain , Severe (7-10) Nicardipine HCl 50 mg/ Sodium 250 mls @ 25 mls/hr 06/22/21 14:00 06/22/21 19:00 Chloride IV 5 mg/hr TITR JOSE 25 mls/hr Administration Protocol 5 MG/HR REMDESIVIR 100 mg/ Sodium 250 mls @ 500 mls/hr 06/24/21 21:00 Chloride IV 06/27/21 21:29 Q24HR@2100 JOSE Sodium Chloride 1,000 mls @ 75 mls/hr 06/24/21 11:30 Nacl 0.9% 1000 Ml IV DIRECT JOSE Metoclopramide HCl 10 mg 06/21/21 21:30 Metoclopramide 10 Mg/2 Ml Inj IV Q6H PRN Nausea And Vomiting Ondansetron HCl 4 mg 06/21/21 21:30 Ondansetron 4 Mg/2 Ml Inj IV Q8H PRN Nausea And Vomiting Oxycodone/Acetaminophen 1 tab 06/21/21 21:30 06/23/21 09:00 Oxycodone /Acetaminophen 5-325mg Tab PO 1 tab Q6H PRN Administration Pain, Moderate (4-6) Sodium Chloride 10 ml 06/21/21 22:00 06/24/21 12:27 Sodium Chloride 0.9% 10 Ml Flush Syringe IV 10 ml BID JOSE Administration Sodium Chloride 10 ml 06/21/21 21:30 Sodium Chloride 0.9% 10 Ml Flush Syringe IV PRN PRN LINE FLUSH Sodium Chloride 50 ml 06/23/21 21:00 06/23/21 22:00 Sodium Chloride 0.9% 50 Ml Ivpb IV 06/27/21 21:01 50 ml Q24HR@2100 JOSE Administration
[2021-06-24] MEDS ORDERED: REMDESIVIR 100 MG in SODIUM CHLORIDE 0.9% 250ML 250 ML IV SCH (21:00)
[2021-06-24] MEDS: SODIUM CHLORIDE 0.9% 50 ML IVPB IV SCH (22:28)
[2021-06-25 05:32] VITALS: BP 106/59
[2021-06-25 05:51] LABS: Hematocrit 46.3 % (35.5-45.6); Mean Corpuscular HGB Conc 34 % (32-34); Mean Corpuscular Volume 94 fl (84-94); Red Blood Count 4.95 M/mm3 (3.65-5.03); Red Cell Distribution Width 13.9 % (13.2-15.2)
[2021-06-25 06:00] LABS: Albumin 3.9 g/dL (3.9-5); Calcium 8.7 mg/dL (8.4-10.2)
[2021-06-25] MEDS: hydrALAZINE 25 MG TAB PO SCH (06:14)
--- NOTE | 2021-06-25 09:48 | Progress Note ---
Hospitalist Physical - Constitutional Vitals: Temp Pulse Resp BP Pulse Ox 98.6 F 44 L 13 106/59 97 06/24/21 20:15 06/25/21 05:46 06/25/21 05:46 06/25/21 05:46 06/25/21 05:46 General appearance: Present: no acute distress HEART Score - HEART Score Age: 45-65 Risk factors: 1-2 risk factors Troponin: Troponin T < 0.010 ng/mL (0.00-0.029) 06/21/21 08:22 Troponin: < normal limit - Critical Actions Critical Actions: 0-3 pts:0.9-1.7%risk of adverse cardiac event.Candidate for discharge Results - Labs CBC & Chem 7: 06/25/21 04:28 06/25/21 04:28 Labs: Laboratory Last Values WBC 3.9 K/mm3 (4.5-11.0) L 06/25/21 04:28 RBC 4.95 M/mm3 (3.65-5.03) 06/25/21 04:28 Hgb 16.0 gm/dl (11.8-15.2) H 06/25/21 04:28 Hct 46.3 % (35.5-45.6) H 06/25/21 04:28 MCV 94 fl (84-94) 06/25/21 04:28 MCH 32 pg (28-32) 06/25/21 04:28 MCHC 34 % (32-34) 06/25/21 04:28 RDW 13.9 % (13.2-15.2) 06/25/21 04:28 Plt Count 145 K/mm3 (140-440) 06/24/21 05:08 [place] % (Auto) Head Teacher 06/25/21 04:28 Add Manual Diff Complete 06/24/21 05:08 Total Counted 100 06/24/21 05:08 Seg Neuts % (Manual) 39.0 % (40.0-70.0) L 06/24/21 05:08 Lymphocytes % (Manual) 40.0 % (13.4-35.0) H 06/24/21 05:08 Monocytes % (Manual) 21.0 % (0.0-7.3) H 06/24/21 05:08 Basophils % (Manual) 2.0 % (0.0-1.8) H 06/21/21 08:22 Nucleated RBC % Not Reportable 06/24/21 05:08 Seg Neutrophils # Man 1.1 K/mm3 (1.8-7.7) L 06/24/21 05:08 Band Neutrophils # 0.0 K/mm3 06/24/21 05:08 Lymphocytes # (Manual) 1.1 K/mm3 (1.2-5.4) L 06/24/21 05:08 Abs React Lymphs (Man) 0.0 K/mm3 06/24/21 05:08 Monocytes # (Manual) 0.6 K/mm3 (0.0-0.8) 06/24/21 05:08 Eosinophils # (Manual) 0.0 K/mm3 (0.0-0.4) 06/24/21 05:08 Basophils # (Manual) 0.0 K/mm3 (0.0-0.1) 06/24/21 05:08 Metamyelocytes # 0.0 K/mm3 06/24/21 05:08 Myelocytes # 0.0 K/mm3 06/24/21 05:08 Promyelocytes # 0.0 K/mm3 06/24/21 05:08 Blast Cells # 0.0 K/mm3 06/24/21 05:08 WBC Morphology Not Reportable 06/24/21 05:08 Hypersegmented Neuts Not Reportable 06/24/21 05:08 Hyposegmented Neuts Not Reportable 06/24/21 05:08 Hypogranular Neuts Not Reportable 06/24/21 05:08 Smudge Cells Not Reportable 06/24/21 05:08 Toxic Granulation Not Reportable 06/24/21 05:08 Toxic Vacuolation Not Reportable 06/24/21 05:08 Dohle Bodies Not Reportable 06/24/21 05:08 Pelger-Huet Anomaly Not Reportable 06/24/21 05:08 Mary Rods Not Reportable 06/24/21 05:08 Platelet Estimate Consistent w auto 06/24/21 05:08 Clumped Platelets Not Reportable 06/24/21 05:08 Plt Clumps, EDTA Not Reportable 06/24/21 05:08 Large Platelets Few 06/24/21 05:08 Giant Platelets Not Reportable 06/24/21 05:08 Platelet Satelliting Not Reportable 06/24/21 05:08 Plt Morphology Comment Not Reportable 06/24/21 05:08 RBC Morphology Normal 06/24/21 05:08 Dimorphic RBCs Not Reportable 06/24/21 05:08 Polychromasia Not Reportable 06/24/21 05:08 Hypochromasia Not Reportable 06/24/21 05:08 Poikilocytosis Not Reportable 06/24/21 05:08 Anisocytosis Not Reportable 06/24/21 05:08 Microcytosis Not Reportable 06/24/21 05:08 Macrocytosis Not Reportable 06/24/21 05:08 Spherocytes Not Reportable 06/24/21 05:08 Pappenheimer Bodies Not Reportable 06/24/21 05:08 Sickle Cells Not Reportable 06/24/21 05:08 Target Cells Not Reportable 06/24/21 05:08 Tear Drop Cells Not Reportable 06/24/21 05:08 Ovalocytes Not Reportable 06/24/21 05:08 Helmet Cells Not Reportable 06/24/21 05:08 [place] Bodies Not Reportable 06/24/21 05:08 [place] Rings Not Reportable 06/24/21 05:08 [place] Cells Not Reportable 06/24/21 05:08 Bite Cells Not Reportable 06/24/21 05:08 Crenated Cell Not Reportable 06/24/21 05:08 Elliptocytes Not Reportable 06/24/21 05:08 Acanthocytes (Spur) Not Reportable 06/24/21 05:08 Rouleaux Not Reportable 06/24/21 05:08 Hemoglobin C Crystals Not Reportable 06/24/21 05:08 Schistocytes Not Reportable 06/24/21 05:08 Malaria parasites Not Reportable 06/24/21 05:08 ESR 6 mm/Hr (0-20) 06/21/21 08:22 Aunp Bodies Not Reportable 06/24/21 05:08 Hem Pathologist Commnt No 06/24/21 05:08 D-Dimer 558.07 ng/mlDDU (0-234) H 06/23/21 08:38 Sodium 137 mmol/L (137-145) 06/25/21 04:28 Potassium 4.3 mmol/L (3.6-5.0) 06/25/21 04:28 Chloride 101.6 mmol/L (98-107) 06/25/21 04:28 Carbon Dioxide 20 mmol/L (22-30) L 06/25/21 04:28 Anion Gap 20 mmol/L 06/25/21 04:28 BUN 73 mg/dL (9-20) H 06/25/21 04:28 Creatinine 2.6 mg/dL (0.8-1.3) H 06/25/21 04:28 Estimated GFR 32 ml/min 06/25/21 04:28 BUN/Creatinine Ratio 28 % 06/25/21 04:28 Glucose 105 mg/dL (75-100) H 06/25/21 04:28 Hemoglobin A1c 5.8 % (4-6) 06/22/21 05:49 Calcium 8.7 mg/dL (8.4-10.2) 06/25/21 04:28 Ferritin 849.2 ng/mL (30.0-300.0) H 06/23/21 08:38 Total Bilirubin 0.20 mg/dL (0.1-1.2) 06/25/21 04:28 AST 45 units/L (5-40) H 06/25/21 04:28 ALT 30 units/L (7-56) 06/25/21 04:28 Alkaline Phosphatase 66 units/L (35-129) 06/25/21 04:28 Lactate Dehydrogenase 317 units/L (91-180) H 06/23/21 08:38 Total Creatine Kinase 1368 units/L (55-170) H 06/23/21 12:56 Troponin T < 0.010 ng/mL (0.00-0.029) 06/21/21 08:22 C-Reactive Protein 2.40 mg/dL (0.00-1.30) H 06/23/21 08:38 NT-Pro-B Natriuret Pep 969.3 pg/mL (0-900) H 06/21/21 08:22 Total Protein 7.0 g/dL (6.3-8.2) 06/25/21 04:28 Albumin 3.9 g/dL (3.9-5) 06/25/21 04:28 Albumin/Globulin Ratio 1.3 % 06/25/21 04:28 Procalcitonin 0.24 ng/mL (<0.15) 06/23/21 08:38 Urine Color Yellow (Yellow) 06/23/21 Unknown Urine Turbidity Slightly-cloudy (Clear) 06/23/21 Unknown Urine pH 5.0 (5.0-7.0) 06/23/21 Unknown Ur Specific [place] 1.019 (1.003-1.030) 06/23/21 Unknown Urine Protein 30 mg/dl mg/dL (Negative) 06/23/21 Unknown Urine Glucose (UA) Neg mg/dL (Negative) 06/23/21 Unknown Urine Ketones Neg mg/dL (Negative) 06/23/21 Unknown Urine Blood Sm (Negative) 06/23/21 Unknown Urine Nitrite Neg (Negative) 06/23/21 Unknown Urine Bilirubin Neg (Negative) 06/23/21 Unknown Urine Urobilinogen < 2.0 mg/dL (<2.0) 06/23/21 Unknown Ur Leukocyte Esterase Neg (Negative) 06/23/21 Unknown Urine WBC (Auto) 1.0 /HPF (0.0-6.0) 06/23/21 Unknown Urine RBC (Auto) 2.0 /HPF (0.0-6.0) 06/23/21 Unknown U Epithel Cells (Auto) < 1.0 /HPF (0-13.0) 06/23/21 Unknown Urine Bacteria (Auto) 1+ /HPF (Negative) 06/23/21 Unknown Amorphous Crystals Few 06/23/21 Unknown Urine Mucus Few /HPF 06/23/21 Unknown Urine Creatinine 212.1 mg/dL (0.1-20.0) H 06/23/21 Unknown Urine Sodium 40 mmol/L 06/23/21 Unknown Urine Urea Nitrogen 1364 06/23/21 Unknown Coronavirus (PCR) Positive (Negative) A 06/22/21 Unknown Active Medications - Current Medications Current Medications: Generic Name Dose Route Start Last Admin Trade Name Freq PRN Reason Stop Dose Admin Acetaminophen 650 mg 06/21/21 21:30 06/21/21 22:00 Acetaminophen 325 Mg Tab PO 650 mg Q4H PRN Administration Pain MILD(1-3)/Fever >100.5/MARTINEZ Dexamethasone 8 mg 06/24/21 10:00 06/24/21 11:46 Dexamethasone 4 Mg Tab PO 07/02/21 10:01 8 mg Q24HR JOSE Administration Famotidine 10 mg 06/25/21 10:00 Famotidine 10 Mg Tab PO BID JOSE Heparin Sodium (Porcine) 5,000 unit 06/21/21 22:00 06/24/21 22:28 Heparin 5,000 Unit/1 Ml Vial SUB-Q 5,000 unit Q12HR JOSE Administration Hydralazine HCl 10 mg 06/21/21 21:33 Hydralazine 20 Mg/1 Ml Inj IV Q3H PRN Blood Pressure Hydralazine HCl 25 mg 06/22/21 12:00 06/25/21 06:14 Hydralazine 25 Mg Tab PO Not Given Q8HR JOSE Hydromorphone HCl 0.5 mg 06/21/21 21:30 Hydromorphone 1 Mg/1 Ml Inj IV Q3H PRN Pain , Severe (7-10) Nicardipine HCl 50 mg/ Sodium 250 mls @ 25 mls/hr 06/22/21 14:00 06/22/21 19:00 Chloride IV 5 mg/hr TITR JOSE 25 mls/hr Administration Protocol 5 MG/HR REMDESIVIR 100 mg/ Sodium 250 mls @ 500 mls/hr 06/24/21 21:00 06/24/21 21:14 Chloride IV 06/27/21 21:29 500 mls/hr Q24HR@2100 JOSE Administration Sodium Chloride 1,000 mls @ 75 mls/hr 06/24/21 11:30 Nacl 0.9% 1000 Ml IV DIRECT JOSE Metoclopramide HCl 10 mg 06/21/21 21:30 Metoclopramide 10 Mg/2 Ml Inj IV Q6H PRN Nausea And Vomiting Ondansetron HCl 4 mg 06/21/21 21:30 Ondansetron 4 Mg/2 Ml Inj IV Q8H PRN Nausea And Vomiting Oxycodone/Acetaminophen 1 tab 06/21/21 21:30 06/23/21 09:00 Oxycodone /Acetaminophen 5-325mg Tab PO 1 tab Q6H PRN Administration Pain, Moderate (4-6) Sodium Chloride 10 ml 06/21/21 22:00 06/24/21 22:34 Sodium Chloride 0.9% 10 Ml Flush Syringe IV 10 ml BID JOSE Administration Sodium Chloride 10 ml 06/21/21 21:30 Sodium Chloride 0.9% 10 Ml Flush Syringe IV PRN PRN LINE FLUSH Sodium Chloride 50 ml 06/23/21 21:00 06/24/21 22:28 Sodium Chloride 0.9% 50 Ml Ivpb IV 06/27/21 21:01 50 ml Q24HR@2100 JOSE Administration
[2021-06-25] MEDS ORDERED: FAMOTIDINE 10 MG TAB PO SCH (10:00)
--- NOTE | 2021-06-25 10:43 | Progress Note ---
Assessment and Plan Hypertensive emergency Acute renal failure COVID-19 infection Ataxia Hyponatremia kidney function is stable since yesterday, no UOP recorded will check renal US-pending, will reorder STAT renally dose meds strict I&O daily weight no indication for [employer]ER Subjective Date of service: 06/25/21 Principal diagnosis: RORY Interval history: on isolation for COVID, chart reviewed Objective - Vital Signs Vital signs: Vital Signs - 12hr 06/24/21 06/24/21 06/24/21 22:46 23:16 23:18 Pulse Rate 51 L 46 L Respiratory 16 20 17 Rate Blood Pressure 121/82 134/94 134/94 O2 Sat by Pulse 96 96 95 Oximetry 06/24/21 06/24/21 06/25/21 23:30 23:46 00:00 Pulse Rate 48 L 45 L 45 L Respiratory 17 9 L 14 Rate Blood Pressure 137/70 137/70 127/70 O2 Sat by Pulse 94 97 98 Oximetry 06/25/21 06/25/21 06/25/21 00:16 00:30 00:46 Pulse Rate 47 L 43 L 47 L Respiratory 13 16 14 Rate Blood Pressure 127/70 118/73 118/73 O2 Sat by Pulse 98 96 94 Oximetry 06/25/21 06/25/21 06/25/21 01:00 01:16 02:46 Pulse Rate 55 L 47 L 47 L Respiratory 12 15 22 Rate Blood Pressure 119/72 119/72 107/68 O2 Sat by Pulse 94 94 98 Oximetry 06/25/21 06/25/21 06/25/21 03:00 03:16 03:30 Pulse Rate 43 L 44 L 43 L Respiratory 17 15 14 Rate Blood Pressure 113/74 107/68 111/66 O2 Sat by Pulse 96 97 98 Oximetry 06/25/21 06/25/21 06/25/21 04:16 04:30 05:00 Pulse Rate 52 L 47 L 43 L Respiratory 16 15 14 Rate Blood Pressure 109/65 124/76 106/59 O2 Sat by Pulse 94 89 98 Oximetry 06/25/21 06/25/21 06/25/21 05:16 05:30 05:46 Pulse Rate 43 L 43 L 44 L Respiratory 14 13 Rate Blood Pressure 106/59 106/59 106/59 O2 Sat by Pulse 98 96 97 Oximetry - Lab 06/25/21 04:28 06/25/21 04:28 Most recent lab results Calcium 8.7 mg/dL (8.4-10.2) 06/25/21 04:28 Urine Creatinine 212.1 mg/dL (0.1-20.0) H 06/23/21 Unknown Urine Sodium 40 mmol/L 06/23/21 Unknown Medications & Allergies - Medications Allergies/Adverse Reactions: Allergies No Known Allergies Allergy (Verified 06/21/21 07:33) Home Medications: Home Medications Medication Instructions Recorded Confirmed Last Taken Type hydrALAZINE [Apresoline TAB] 25 mg PO Q8HR #90 tablet 08/31/15 Unknown Rx Acetaminophen [Acetaminophen TAB] 500 mg PO Q6HR PRN #30 tablet 11/15/17 Unknown Rx Cyclobenzaprine [Flexeril] 10 mg PO TID PRN #15 tablet 11/15/17 Unknown Rx amLODIPine 10 mg PO DAILY #30 tablet 11/15/17 Unknown Rx Active Medications: Generic Name Dose Route Start Last Admin Trade Name Freq PRN Reason Stop Dose Admin Acetaminophen 650 mg 06/21/21 21:30 06/21/21 22:00 Acetaminophen 325 Mg Tab PO 650 mg Q4H PRN Administration Pain MILD(1-3)/Fever >100.5/MARTINEZ Dexamethasone 8 mg 06/24/21 10:00 06/24/21 11:46 Dexamethasone 4 Mg Tab PO 07/02/21 10:01 8 mg Q24HR JOSE Administration Famotidine 10 mg 06/25/21 10:00 Famotidine 10 Mg Tab PO BID JOSE Heparin Sodium (Porcine) 5,000 unit 06/21/21 22:00 06/24/21 22:28 Heparin 5,000 Unit/1 Ml Vial SUB-Q 5,000 unit Q12HR JOSE Administration Hydralazine HCl 10 mg 06/21/21 21:33 Hydralazine 20 Mg/1 Ml Inj IV Q3H PRN Blood Pressure Hydralazine HCl 25 mg 06/22/21 12:00 06/25/21 06:14 Hydralazine 25 Mg Tab PO Not Given Q8HR JOSE Hydromorphone HCl 0.5 mg 06/21/21 21:30 Hydromorphone 1 Mg/1 Ml Inj IV Q3H PRN Pain , Severe (7-10) Nicardipine HCl 50 mg/ Sodium 250 mls @ 25 mls/hr 06/22/21 14:00 06/22/21 19:00 Chloride IV 5 mg/hr TITR JOSE 25 mls/hr Administration Protocol 5 MG/HR REMDESIVIR 100 mg/ Sodium 250 mls @ 500 mls/hr 06/24/21 21:00 06/24/21 21:14 Chloride IV 06/27/21 21:29 500 mls/hr Q24HR@2100 JOSE Administration Sodium Chloride 1,000 mls @ 75 mls/hr 06/24/21 11:30 Nacl 0.9% 1000 Ml IV DIRECT JOSE Metoclopramide HCl 10 mg 06/21/21 21:30 Metoclopramide 10 Mg/2 Ml Inj IV Q6H PRN Nausea And Vomiting Ondansetron HCl 4 mg 06/21/21 21:30 Ondansetron 4 Mg/2 Ml Inj IV Q8H PRN Nausea And Vomiting Oxycodone/Acetaminophen 1 tab 06/21/21 21:30 06/23/21 09:00 Oxycodone /Acetaminophen 5-325mg Tab PO 1 tab Q6H PRN Administration Pain, Moderate (4-6) Sodium Chloride 10 ml 06/21/21 22:00 06/24/21 22:34 Sodium Chloride 0.9% 10 Ml Flush Syringe IV 10 ml BID JOSE Administration Sodium Chloride 10 ml 06/21/21 21:30 Sodium Chloride 0.9% 10 Ml Flush Syringe IV PRN PRN LINE FLUSH Sodium Chloride 50 ml 06/23/21 21:00 06/24/21 22:28 Sodium Chloride 0.9% 50 Ml Ivpb IV 06/27/21 21:01 50 ml Q24HR@2100 JOSE Administration
[2021-06-25 11:15] LABS: RBC Morphology Normal; Total Cells Counted 100
[2021-06-25 11:16] LABS: Platelet Estimate Consistent w Auto
[2021-06-25 11:36] LABS: Platelet Count 151 K/mm3 (140-440)
--- NOTE | 2021-06-25 12:42 | Event Note ---
Date: 06/25/21 Nurse called me stating she cannot find patient. He likely left hospital
--- NOTE | 2021-06-25 14:06 | Discharge Summary ---
Providers - Providers Date of Admission: 06/22/21 13:34 Attending physician: AMANDA CASTELLANOS 06/23/21 07:41 Consult to Physician [CONS] Routine Comment: Consulting Provider: TORY MCGARRY Physician Instructions: Reason For Exam: Covid 06/23/21 07:45 Consult to Physician [CONS] Routine Comment: Consulting Provider: BALTA WOLF Physician Instructions: Reason For Exam: RORY in Covid, HTN emergency 06/25/21 09:47 Consult to Physician [CONS] Routine Comment: Consulting Provider: INGA BELL Physician Instructions: Reason For Exam: Bradycardia, HTN, Covid Primary care physician: TUB MENDER Hospitalization Condition: Stable Exam - Constitutional Vitals: Temp Pulse Resp BP Pulse Ox 98.6 F 44 L 13 106/59 97 06/24/21 20:15 06/25/21 05:46 06/25/21 05:46 06/25/21 05:46 06/25/21 05:46 Plan Follow up with: PRIMARY CAREMD [Primary Care Provider] - 3-5 Days
== END 2021-06-25 11:55 | disposition left against medical advice (07) | DRG 177 ==
LOC: ED 07:29 → INTOOBSV 12:18 → 4A 12:18 → 3A 06-22 05:51 → OBSVTOIN 06-22 13:34
PROVIDERS: ADMIT Internal Medicine; ATTEND Internal Medicine
PROC: XW033E5 Introduction of Remdesivir Anti-infective into Peripheral Vein, Percutaneous Approach, New Technology Group 5 (ICD-10-PCS; principal; 2021-06-23)
DX: U07.1 COVID-19 (principal); J12.82 Pneumonia due to coronavirus disease 2019; J96.01 Acute respiratory failure with hypoxia; N17.0 Acute kidney failure with tubular necrosis; I16.1 Hypertensive emergency; E87.1 Hypo-osmolality and hyponatremia; I10 Essential (primary) hypertension; F17.200 Nicotine dependence, unspecified, uncomplicated; Z82.49 Family history of ischemic heart disease and other diseases of the circulatory system; R27.0 Ataxia, unspecified
CPT/HCPCS: 36415; 70450; 71045; 80048; 80053; 81001; 82550; 82570; 82728; 82947; 83036; 83615; 83880; 84145; 84300; 84484; 84520; 85007; 85025; 85027; 85379; 85652; 86140; 93005; G0378; J0360; J1200; J1644; J2765; J7050; J8540; U0003

== ENCOUNTER 2021-08-21 07:26 | Day surgery (SDC) | payer BC, SELFPAY ==
[2021-08-21] MEDS ORDERED: SODIUM CHLORIDE 0.9% 1000 ML 1,000 ML ONE (07:49)
[2021-08-21] MEDS ORDERED: SODIUM CHLORIDE 0.9% 1000 ML 1,000 ML IV SCH (08:00)
[2021-08-21] MEDS ORDERED: ASPIRIN EC 325 MG TAB PO NR (08:33)
[2021-08-21 08:51] LABS: Hematocrit 37.3 % (35.5-45.6); Hemoglobin 12.7 gm/dl (11.8-15.2); Mean Corpuscular HGB Conc 34 % (32-34); Mean Corpuscular Volume 91 fl (84-94); Platelet Count 367 K/mm3 (140-440); Red Blood Count 4.09 M/mm3 (3.65-5.03); Red Cell Distribution Width 14.2 % (13.2-15.2)
[2021-08-21] MEDS ORDERED: SODIUM CHLORIDE 0.9% 500 ML 500 ML IV SCH (09:00)
[2021-08-21 09:04] LABS: BUN/Creatinine Ratio 13; Blood Urea Nitrogen 17 mg/dL (9-20); Calcium 8.7 mg/dL (8.4-10.2); Hemolysis Index 7
[2021-08-21 09:05] LABS: INR 0.82 (0.87-1.13)
[2021-08-21 09:27] LABS: Anisocytosis 1+; Platelet Estimate Consistent w Auto; Total Cells Counted 100
[2021-08-21 09:29] LABS: Partial Thromboplastin Time 32.9 Sec. (24.2-36.6)
[2021-08-21] MEDS: fentaNYL 100 MCG/2 ML INJ ONE ×2 (12:52→13:00)
[2021-08-21] MEDS: MIDAZOLAM 2 MG/2 ML INJ ONE ×2 (12:52→13:00)
[2021-08-21] MEDS: HEPARIN 10,000 UNITS/10 ML VIAL ONE ×2 (12:53→13:07)
[2021-08-21] MEDS: LIDOCAINE (2%) 20 MG/1 ML VIAL 20 ML MDV INFILTRATI ONE ×2 (12:53→13:01)
[2021-08-21] MEDS: VERAPAMIL 5 MG/2 ML INJ ONE ×2 (12:54→13:07)
[2021-08-21] MEDS: HEPARIN/NS 5000 UNIT/500ML 1,000 ML IR ONE ×2 (12:54→13:08)
[2021-08-21] MEDS: NITROGLYCERIN SYRINGE 3 ML ONE ×2 (12:54→13:07)
[2021-08-21] MEDS ORDERED: fentaNYL 100 MCG/2 ML INJ IV ONE ×2 (13:02→13:08)
[2021-08-21] MEDS ORDERED: MIDAZOLAM 2 MG/2 ML INJ IV ONE (13:02)
[2021-08-21] MEDS ORDERED: LIDOCAINE (2%) 20 MG/1 ML VIAL 20 ML MDV INFILTRATI ONE ×3 (13:02→13:09)
[2021-08-21] MEDS ORDERED: hydrALAZINE 20 MG/1 ML INJ ONE (13:31)
[2021-08-21] MEDS ORDERED: hydrALAZINE 20 MG/1 ML INJ IV ONE (13:33)
--- NOTE | 2021-08-21 13:54 | Cardiac Catherization Report ---
DATE OF SERVICE: 08/21/2021 CARDIAC CATHETERIZATION REPORT REASON FOR PROCEDURE: The patient is a 51-year-old man referred for outpatient cardiac catheterization. INDICATION: An abnormal thallium stress test and cardiomyopathy. He is noted with chronic kidney disease and prior to the cardiac catheterization, he presented to the hospital for preprocedure IV hydration with normal saline 75 mL per hour. His creatinine on presentation was 1.3. After several hours of IV hydration, we proceeded with a cardiac catheterization. Risks and benefits were discussed with the patient extensively including elevated risk of contrast nephropathy, he consents to proceed. PROCEDURES: 1. Left heart catheterization. 2. Selective left and right coronary angiography. 3. Left ventricular angiography. 4. Sedation time start 1300 hours, end 1322. DESCRIPTION OF PROCEDURE: The patient was prepped and draped in a sterile fashion after informed consent. We initially entered the right radial artery, and after placement of a 6-Kenyan hydrophilic sheath, there was difficulty in extending the guidewire past the elbow, we therefore abandoned this approach and turned our attention to the right femoral artery. A 6-Kenyan sheath was inserted into right femoral artery using the Seldinger technique without difficulty. Selective left and right coronary angiography was performed using a #4 left Omero and a #4 right Omero. A pigtail catheter was used for left ventricular angiography. The catheters and sheaths were removed, hemostasis at the right femoral site using an Angio-Seal device, and the right radial site using a TR band. The patient was returned to the post-procedure unit in stable condition. There were no complications. FINDINGS: HEMODYNAMICS: Left ventricular end diastolic pressure was 23, following coronary angiography. Ascending aortic pressure 150/95. There was no significant pressure gradient on pullback across the aortic valve. CORONARY ANGIOGRAPHY: The left main coronary artery was angiographically normal. The left anterior descending artery and its diagonal branches were angiographically normal. A large ramus intermedius artery was angiographically normal. The circumflex artery and its obtuse marginal branches were similarly angiographically normal. The right coronary artery was dominant and angiographically normal. There was mild dilatation of the left ventricle with to [id number] diffuse hypokinesis with left ventricular ejection fraction 35-40%. CONCLUSION: 1. Angiographically normal coronary arteries. 2. Mild to moderate, nonischemic cardiomyopathy, left ventricular ejection fraction 35-40%. 3. Total contrast used for the procedure was 75 mL RECOMMENDATIONS: 1. Post-procedure, IV hydration with normal saline. 2. Risk factor modification. 3. Medical therapy for nonischemic cardiomyopathy. TID: [id number] RECEIPT: [id number] RODRÍGUEZ TOVAR
[2021-08-21] MEDS ORDERED: traMADol 50 MG TAB PO PRN (14:00)
[2021-08-21 17:00] VITALS: BP 156/91
--- NOTE | 2021-08-21 17:01 | Vascular Lab Report ---
DUPLEX ARTERIAL DOPPLER EXAMINATION OF THE RIGHT UPPER EXTREMITY WITH SPECTRAL ANALYSIS INDICATION: Attempted cardiac catheterization today via the right radial artery FINDINGS: Good flow is seen in the examined areas of the subclavian artery, axillary artery, and brac hial artery. The radial artery arises in a high location in the mid arm. Distally there is only a sma ll amount of flow seen in the radial artery. No pseudoaneurysm is seen. Ulnar artery shows good flow area IMPRESSION: 1. Reduced flow noted in the distal radial artery 2. No evidence of pseudoaneurysm 3. 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
--- NOTE | 2021-08-21 19:20 | Electrocardiograph Report ---
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
== END 2021-08-21 17:40 | disposition home or self-care (01) ==
LOC: CATHLABREC 07:26
PROVIDERS: ATTEND Internal Medicine Cardiovascular Disease
DX: R94.30 Abnormal result of cardiovascular function study, unspecified (principal); I10 Essential (primary) hypertension; M19.90 Unspecified osteoarthritis, unspecified site; E87.1 Hypo-osmolality and hyponatremia; N17.0 Acute kidney failure with tubular necrosis; F17.210 Nicotine dependence, cigarettes, uncomplicated; Z53.29 Procedure and treatment not carried out because of patient's decision for other reasons; Z79.899 Other long term (current) drug therapy; Z79.82 Long term (current) use of aspirin; Z98.890 Other specified postprocedural states
CPT/HCPCS: 36415; 80048; 85007; 85025; 85610; 85730; 93005; 93458; 93931; 96360; 96361; 99156; C1760; C1894; J0360; J1644; J2250; J3010; J7030; J7040; Q9967